=== PATIENT | female | born 1980 | race Caucasian/White ===

== ENCOUNTER → 2017-08-03 | Outpatient (CLI) | payer OTHER ==
[2017-08-03] MEDS: GADOBUTROL 10 MMOL/10 ML VIAL IV (10:38)
== END | disposition home or self-care (01) ==
LOC: MRI 13:57
DX: M22.41 Chondromalacia patellae, right knee (principal); M71.21 Synovial cyst of popliteal space [Baker], right knee; R60.0 Localized edema; Z87.898 Personal history of other specified conditions
CPT/HCPCS: 73723; A9585

== ENCOUNTER → 2017-11-18 | Outpatient (CLI) | payer OTHER | END | disposition home or self-care (01) | LOC: RAD 10:43 | DX: M25.561 Pain in right knee (principal); M25.562 Pain in left knee | CPT/HCPCS: 73562 ==

== ENCOUNTER → 2019-01-03 | Outpatient (CLI) | payer OTHER ==
[2018-01-14 15:00] VITALS: BP 107/70
[~2019-01-03] MED LIST: ACYC400T PO; ATEN25TA PO; CYCL5TAB PO; DIAZ5TAB PO; HYDR-2761 PO; MELO7.5T29 PO; METH-364 PO; PANT20TA2 PO; [UNRECOGNIZED DRUG - OTHER]
--- NOTE | 2019-01-03 08:19 | RAD ---
EXAM: Limited abdominal ultrasound. HISTORY: Left upper quadrant swelling. COMPARISON: None. FINDINGS: Sonography of the left upper quadrant was performed at the site of concern. The palpable region appears to correspond with the costal margin. No fluid collection or mass is identified. The spleen is not enlarged at 11.1 cm. IMPRESSION: 1. The focus of palpable concern may correspond with the costal margin. No abnormality is identified. Recommend ongoing clinical follow-up of palpable foci. Electronically signed by: Cam Mcleod MD (01/03/2019 8:16 AM) [facility]
== END | disposition home or self-care (01) ==
LOC: US 06:16
PROVIDERS: ATTEND Family Medicine
DX: R10.12 Left upper quadrant pain (principal)
CPT/HCPCS: 76705

== ENCOUNTER 2019-12-14 18:29 | Emergency (ER) | payer OTHER ==
[~2019-12-14] VITALS: Ht 165.1 cm; Wt 118.0 kg
[2019-12-14 18:47] VITALS: BP 166/78
[2019-12-14 19:12] LABS: BILIRUBIN,URINE SMALL (NEG); CLARITY,URINE CLOUDY; COLOR,URINE RED; NITRITE,URINE NEGATIVE (NEG); PROTEIN,URINE 30 mg/dL (NEG-TRACE)
[2019-12-14] MEDS ORDERED: OXYC-325 PO (19:20)
[2019-12-14] MEDS ORDERED: NYST15CR TP (19:20)
--- NOTE | 2019-12-14 19:20 | PHYS DOC ---
Past Medical History Past Medical History: Other Additional Past Medical Histor: thyroid disease, herpes, muscle spasms to lower back Past Surgical History: No Surgical History Smoking Status: Current Every Day Smoker Alcohol Use: None Drug Use: None General Adult EDM: Chief Complaint: PELVIC PAIN HPI: HPI: Patient is a 39 year old female presents for evaluation of rash in abdominal panus and pain. Patient states both started 2 days ago-- progressively getting worse. Pain worse with walking or palpation. Patient currently on her period. On exam patients abdomen and suprapubic soft. Red, moist area along the underfound of patients panus--consistent with yeast infection. This area is tender to palpation. Patient is scheduled for have hysterectomy next Wednesday and has preoperative cov id evaluation tomorrow. Review of Systems: Review of Systems: Constitutional: Denies fever or chills. [] Eyes: Denies change in visual acuity. [] HENT: Denies nasal congestion or sore throat. [] Respiratory: Denies cough or shortness of breath. [] Cardiovascular: Denies chest pain or edema. [] GI: Denies abdominal pain, nausea, vomiting, bloody stools or diarrhea. [] : Denies dysuria. [suprapubic discomfort] Musculoskeletal: Denies back pain or joint pain. [] Integument: positive rash. [] Neurologic: Denies headache, focal weakness or sensory changes. [] Endocrine: Denies polyuria or polydipsia. [] Lymphatic: Denies swollen glands. [] Psychiatric: Denies depression or anxiety. [] Heart Score: Risk Factors: Risk Factors: DM, Current or recent (<one month) smoker, HTN, HLP, family history of CAD, obesity. Risk Scores: Score 0 - 3: 2.5% MACE over next 6 weeks - Discharge Home Score 4 - 6: 20.3% MACE over next 6 weeks - Admit for Clinical Observation Score 7 - 10: 72.7% MACE over next 6 weeks - Early Invasive Strategies Allergies: Allergies: Allergies Coded Allergies Type Severity Reaction Last Updated Verified Penicillins Allergy Intermediate Hives 12/02/15 Yes aspirin Allergy Intermediate Hives 12/02/15 Yes Physical Exam: PE: Constitutional: Well developed, well nourished, no acute distress, non-toxic appearance. [] HENT: Normocephalic, atraumatic, bilateral external ears normal, oropharynx moist, no oral exudates, nose normal. [] Eyes: PERRLA, EOMI, conjunctiva normal, no discharge. [] Neck: Normal range of motion, no tenderness, supple, no stridor. [] Cardiovascular:Heart rate regular rhythm, no murmur [] Lungs & Thorax: Bilateral breath sounds clear to auscultation [] Abdomen: Bowel sounds normal, soft, no tenderness, no masses, no pulsatile masses. [] Skin: Warm, dry, no erythema, rash lower abdomen upper pelvis consistent with yeast infection, red and moist area- tender to palpation Back: No tenderness, no CVA tenderness. [] Extremities: No tenderness, no cyanosis, no clubbing, ROM intact, no edema. [] Neurologic: Alert and oriented X 3, normal motor function, normal sensory function, no focal deficits noted. [] Psychologic: Affect normal, judgement normal, mood normal. [] EKG: EKG: [] Radiology/Procedures: Radiology/Procedures: [] Course & Med Decision Making: Course & Med Decision Making Pertinent Labs and Imaging studies reviewed. (See chart for details) [] Dragon Disclaimer: [employer] Disclaimer: This electronic medical record was generated, in whole or in part, using a voice recognition dictation system. Departure Departure Impression: Primary Impression: Yeast infection Additional Impression: Pelvic pain Disposition: 01 HOME, SELF-CARE Condition: STABLE Referrals: DAVID MEDINA MD (PCP) Patient Instructions: Pelvic Pain, Female, Yeast Infection of the Skin, Ofvs-rd-Eyod Scripts Oxycodone HCl/Acetaminophen (Percocet 5-325 mg Tablet) 1 Each Tablet 1 TAB PO PRN TID PRN for PAIN MDD 3 Tablet(s) for 5 Days, #15 TAB 0 Refills Prov: YADIRA ORTEGA I DO 12/14/19 Nystatin (NYSTATIN) 15 Gm Cream..g. 1 TORI TP TID, #30 GM Prov: YADIRA ORTEGA I DO 12/14/19 YADIRA ORTEGA I DO December 14, 2019 19:20
[2019-12-14 19:30] LABS: HYALINE CASTS, URINE OCCASIONAL /HPF; RBC,URINE TNTC /HPF (0-2); SQUAMOUS EPITHELIAL CELL,UR MOD /LPF
[2019-12-14 19:31] LABS: AMORPHOUS SEDIMENT,UR PRESENT /HPF; BACTERIA,URINE MODERATE /HPF (0-FEW)
== END 2019-12-14 19:28 | disposition home or self-care (01) ==
LOC: ER 18:29
DX: B37.89 Other sites of candidiasis (principal); R10.2 Pelvic and perineal pain; Z88.0 Allergy status to penicillin; Z88.6 Allergy status to analgesic agent
CPT/HCPCS: 81001; 81025; 87086; 99283

== ENCOUNTER → 2019-12-18 | Outpatient (CLI) | payer OTHER ==
[2019-12-14 18:47] VITALS: BP 166/78
[~2019-12-18] MED LIST changes: +DOCU-109 PO; +IBUP-1060 PO; +NYST15CR TP; +OXYC-325 PO; +OXYC1TAB15 PO
[2019-12-18 14:26] LABS: BASO # 0.1 x10^3/uL (0.0-0.2); BASO % 1 % (0-3); EOS # 0.2 x10^3/uL (0.0-0.7); EOS % 1 % (0-3); HEMATOCRIT 37.2 % (36.0-47.0); HEMOGLOBIN 12.4 g/dL (12.0-15.5); LYMPH # 2.1 x10^3/uL (1.0-4.8); LYMPH % 18 % (24-48); MEAN CORPUSCULAR HEMOGLOBIN 30 pg (25-35); MEAN CORPUSCULAR HGB CONC 34 g/dL (31-37); MEAN CORPUSCULAR VOLUME 89 fL (79-100); MONO # 0.8 x10^3/uL (0.0-1.1); MONO % 7 % (0-9); NEUT # 8.5 x10^3/uL (1.8-7.7); NEUT % 73 % (31-73); PLATELET COUNT 298 x10^3/uL (140-400); RED BLOOD COUNT 4.19 x10^6/uL (3.50-5.40); RED CELL DISTRIBUTION WIDTH 15.6 % (11.5-14.5); WHITE BLOOD COUNT 11.7 x10^3/uL (4.0-11.0)
[2019-12-18 14:45] LABS: CALCIUM 8.3 mg/dL (8.5-10.1); CREATININE 0.9 mg/dL (0.6-1.0); POTASSIUM 3.8 mmol/L (3.5-5.1)
== END | disposition home or self-care (01) ==
LOC: SURGPAT 13:34
PROVIDERS: ATTEND Obstetrics & Gynecology
DX: Z01.818 Encounter for other preprocedural examination (principal); Z11.59 Encounter for screening for other viral diseases; N92.0 Excessive and frequent menstruation with regular cycle
CPT/HCPCS: 36415; 80048; 85025; C9803-CS; U0003-CS

== ENCOUNTER 2019-12-21 11:44 | Observation (INO) | payer OTHER ==
[2019-12-21] VITALS (10 sets, daily range): BP systolic 98–130; BP diastolic 58–76
[~2019-12-21] VITALS: Ht 165.1 cm; Wt 117.9 kg
[~2019-12-21 11:44] MED LIST changes: +CLINDAMYCIN 900MG PREMIX 50 ML IV ONE; +DEXAMETHASONE SOD PHOS 4 MG/ML VIAL ONE; -DOCU-109 PO; +GENTAMICIN SULFATE 400 MG in IV DEXTROSE 5% 100ML 100 ML IV ONE; +HYDROmorphone 2 MG/ML VIAL IV PRN; -IBUP-1060 PO; +IV RINGERS,LACTATED 1000ML 1,000 ML IV SCH; +LIDOCAINE 1% PF 2 ML VIAL. ID PRN; +LIDOCAINE 2% PF 5 ML VIAL. ONE; +MIDAZOLAM HCL/PF 2 MG/2 ML VIAL. ONE; +MORPHINE SULFATE 2 MG/ML VIAL. IV PRN; +ONDANSETRON PF 4 MG/2 ML VIAL. IV PRN; +ONDANSETRON PF 4 MG/2 ML VIAL. ONE; -OXYC1TAB15 PO; +PROCHLORPERAZINE 10 MG/2 ML VIAL. IV PRN; +PROPOFOL 10 MG/ML (20ML) VIAL. IV ONE; +ROCURONIUM 50 MG/5 ML VIAL. ONE; +fentaNYL PF VIAL 100 MCG/2 ML VIAL IV PRN; +fentaNYL PF VIAL 100 MCG/2 ML VIAL ONE
[2019-12-21] MEDS ORDERED: PHENYLEPHRINE in 0.9% NACL PF 1 MG/10 ML SYRINGE. IV ONE (13:44)
[2019-12-21] MEDS ORDERED: ROCURONIUM 50 MG/5 ML VIAL. ONE (14:15)
[2019-12-21] MEDS ORDERED: fentaNYL PF VIAL 100 MCG/2 ML VIAL ONE ×2 (14:18→16:54)
[2019-12-21] MEDS ORDERED: GLYCOPYRROLATE 1 MG/5 ML VIAL. ONE (15:26)
[2019-12-21] MEDS ORDERED: NEOSTIGMINE METHYLSULFATE 5 MG/5 ML SYRINGE. ONE (15:27)
[2019-12-21] MEDS ORDERED: SEVOFLURANE > 120 MINUTES. IH ONE (15:59)
[2019-12-21] MEDS ORDERED: PROPOFOL 10 MG/ML (20ML) VIAL. IV ONE (16:13)
[2019-12-21] MEDS ORDERED: IV NORMAL SALINE 1000ML BAG 1,000 ML IV SCH (16:24)
[2019-12-21] MEDS ORDERED: IV DEXTROSE 5 %-0.45 % NACL 1,000 ML IV SCH (16:24)
[2019-12-21] MEDS ORDERED: MORPHINE SULFATE 2 MG/ML VIAL. IV PRN ×2 (16:30)
[2019-12-21] MEDS ORDERED: oxyCODONE/APAP 5/325 1 TAB TABLET PO PRN (16:30)
[2019-12-21] MEDS ORDERED: 0.9 % SODIUM CHLORIDE 10 ML DISP.SYRIN. IV PRN (16:30)
[2019-12-21] MEDS ORDERED: diphenhydrAMINE 50 MG/ML VIAL IV PRN (16:30)
[2019-12-21] MEDS ORDERED: NALOXONE 0.4 MG/ML VIAL. IV PRN (16:30)
[2019-12-21] MEDS ORDERED: KETOROLAC 15 MG/ML VIAL. IV PRN (16:30)
[2019-12-21] MEDS ORDERED: IBUPROFEN 200 MG TABLET. PO PRN (16:30)
[2019-12-21] MEDS ORDERED: DEXTROSE 50% 25 GM / 50ML DISP.SYRIN. IV PRN (16:30)
[2019-12-21] MEDS ORDERED: diphenhydrAMINE HCL 25 MG CAPSULE PO PRN (16:30)
[2019-12-21] MEDS ORDERED: MORPHINE SULFATE 2 MG/ML VIAL. ONE (16:54)
--- NOTE | 2019-12-21 17:26 | PDOC4 ---
OPERATIVE NOTE: PreOp Dx: 1.) Menorrhagia, 2.) Dysmenorrhea, 3.) PCN All, 4.) Tob use, 5.) Asthma PostOp Dx: same Procedure: LAVH/RS Surgeon: Rosa Larson Anesthesia: GETA EBL: 500cc Fluids: 1500cc UOP: 175cc Complications: None Findings: Adhesions of the small bowel to left side of anterior abd wall containing some of the left tube, otherwise nml right tube and uterus. Specimen: uterus, cervix and right tube DAVID LARSON MD December 21, 2019 17:25
--- NOTE | 2019-12-21 17:45 | NUR ---
Pt admitted to room 341 per bed from PACU. Pt sleepy but arouses, she complains of "needing to pee". Dc catheter is draining properly, will notify the doctor if the pain continues. Frequent VS started.
[2019-12-21] MEDS: oxyCODONE/APAP 5/325 1 TAB TABLET PO PRN (21:01)
[2019-12-21] MEDS: DOCUSATE SODIUM 100 MG CAPSULE. PO SCH (21:03)
--- NOTE | 2019-12-21 22:31 | OP ---
DATE OF SURGERY: 12/21/2019 PREOPERATIVE DIAGNOSES: 1. Menorrhagia. 2. Dysmenorrhea. 3. PENICILLIN ALLERGY. 4. Tobacco use. 5. Asthma. POSTOPERATIVE DIAGNOSES: 1. Menorrhagia. 2. Dysmenorrhea. 3. PENICILLIN ALLERGY. 4. Tobacco use. 5. Asthma. PROCEDURE: Laparoscopic-assisted vaginal hysterectomy with right salpingectomy. SURGEON: Justin Larson MD ANESTHESIA: General endotracheal intubation. ESTIMATED BLOOD LOSS: 500 mL. FLUIDS: 1500 mL. URINE OUTPUT: 175 mL. COMPLICATIONS: None. FINDINGS: Adhesions of the small bowel to the left anterior abdominal wall. Also, containing a portion of the left tube, otherwise normal right tube, normal uterus. SPECIMENS: Uterus, right tube and cervix. DESCRIPTION OF PROCEDURE: The patient was taken to the operating room where general endotracheal intubation was obtained without difficulty. The patient was prepped and draped in normal sterile fashion. Attention was first turned to the vagina where speculum was placed to visualize the cervix. The anterior lip of the cervix was grasped with a single tooth tenaculum. An [place] uterine manipulator was then placed into the uterine cavity. The speculum was then removed. At that point, a Dc catheter was then placed in the patient's bladder. Attention was then turned to the abdomen where a 5 mm skin incision was made in her infraumbilical fold. Veress needle was introduced into the abdominal cavity. The opening pressure was above the 15 mmHg, so it was felt not to be in the intraabdominal cavity. Therefore, the Veress needle was removed. At that point, a 5 mm trocar was directly placed into the abdomen. Intraabdominal placement was confirmed with the laparoscope. The abdomen was then insufflated to 15 mmHg. Once the abdomen was insufflated, a second trocar was then placed on the left approximately two-thirds between her ischial spine and the umbilicus first by making a 5 mm skin incision followed by placing the trocar under direct visualization of the laparoscope. Attention was then turned to the right where a 5 mm trocar was then placed in similar fashion, approximately two-thirds between the ischial spine and the umbilicus by first making a 5 mm skin incision and then placing a 5 mm trocar under direct visualization of the laparoscope. Visualization of the pelvis revealed adhesions of the small bowel to the left portion of the anterior abdominal wall, contained in these adhesion was the left tube. Since the patient had had no abdominal surgery prior, it was felt that these adhesions may have been secondary to infection in the past. Visualization of the rest of her abdomen revealed no adhesions near her liver or any other portion of the abdomen or pelvis. At that point, some of the adhesions were taken down to sufficiently to allow visualize the uterus, tubes and ovaries. At that point, since the left tube could not be from the adhesions, it was dissected through. The portion that could be removed with the uterus was dissected and off with the LigaSure device. The LigaSure device was then used to serially coagulate and cut the uterine pedicles to the level of the uterine arteries. At that point, the peritoneum was undermined to allow for the creation of bladder flap. The bladder flap was then brought to the midline. Additional bites of the uterine pedicles were taken with the LigaSure device. Attention was then turned to the right side. At this point, the right tube was able to be followed out to the fimbria. The right tube was then from the ovary with the LigaSure device. Once this had been performed, the round ligament was then cut with the LigaSure device. The uterine pedicles on the right were then serially coagulated and cut with the LigaSure device to the level of the uterine arteries. At that point, the peritoneum was undermined to complete the bladder flap. Once this had been accomplished, an additional bite of the uterine vessels were then taken with the LigaSure device. At that point, good hemostasis was noted. All the instruments were removed. Attention was then turned to the vagina, where the cervix was cut circumferentially with the Bovie device. It was noted that there was very little descensus of the uterus despite the pedicles that had be taken down from above. In fact the posterior lip of the cervix did not readily come down when was grasped with a single-tooth tenaculum. At that point, the pubovesical fascia was then dissected from the bladder with Metzenbaum scissors. Once the anterior cul-de-sac was entered, attention was then turned to the posterior cul-de-sac where Harrison scissors were used to enter the peritoneum posteriorly. At that point, a Teresa clamp was used to grasp the left uterosacral ligament. This was then cut and tagged with 0 Vicryl. This was performed on the right side where the right uterosacral ligament was grasped with a Teresa clamp, cut and tagged. Once this had been performed, the uterus was serially cut, clamped and tied until all pedicles were free. This was accomplished with 4 additional bites on each side. Uterus was then delivered. Once the uterus was delivered, the remaining pedicles were tied off with a free tie. Examination of the uterus revealed that the right tube was intact with the rest of the specimen. Once good hemostasis was noted, the vaginal cuff was then closed first by making a pyfbfm-ox-jcsbq stitch on the left lateral edge at the second pass including the left uterosacral ligament. This was then tagged. Attention was then turned to the right side, where a vyzcde-va-wjgsq stitch was then placed at the second pass including the right uterosacral ligament. Three additional mcnlwb-pv-przyy stitches were used to close the remainder of the cuff. The cuff was then irrigated. Good hemostasis was noted. All the stitches were all cut. At that point, attention was then turned to the abdomen which was once again insufflated. Survey of the vaginal cuff revealed good hemostasis. The pelvis was then copiously irrigated. Good hemostasis was noted at that point. The ureters were then observed to be peristalsing. All instruments were removed as well as the trocar. The laparoscopic incisions were closed with 4-0 Monocryl. At that point, the patient tolerated the procedure well and was taken to the recovery room in stable condition. Sponges, laps and needles were correct x 3. JUSTIN LARSON MD DR: SHANNON/michael JOB#: [id number] / [id number] ALECIA
[2019-12-22 00:53] VITALS: BP 111/59
[2019-12-22] MEDS: oxyCODONE/APAP 5/325 1 TAB TABLET PO PRN ×2 (01:01→05:47)
[2019-12-22 05:31] LABS: BASO % 0 % (0-3); EOS % 0 % (0-3); HEMOGLOBIN 9.9 g/dL (12.0-15.5); LYMPH # 1.5 x10^3/uL (1.0-4.8); LYMPH % 9 % (24-48); MEAN CORPUSCULAR HEMOGLOBIN 29 pg (25-35); MEAN CORPUSCULAR HGB CONC 33 g/dL (31-37); MEAN CORPUSCULAR VOLUME 89 fL (79-100); MONO # 1.3 x10^3/uL (0.0-1.1); MONO % 8 % (0-9); NEUT # 13.7 x10^3/uL (1.8-7.7); NEUT % 83 % (31-73); PLATELET COUNT 290 x10^3/uL (140-400); RED BLOOD COUNT 3.36 x10^6/uL (3.50-5.40); RED CELL DISTRIBUTION WIDTH 15.5 % (11.5-14.5); WHITE BLOOD COUNT 16.6 x10^3/uL (4.0-11.0)
[2019-12-22 05:43] VITALS: BP 114/39
[2019-12-22 05:46] LABS: CALCIUM 7.8 mg/dL (8.5-10.1); GFR 61.1; POTASSIUM 4.6 mmol/L (3.5-5.1)
[2019-12-22] MEDS ORDERED: DOCU-109 PO (08:24)
[2019-12-22] MEDS ORDERED: IBUP-1060 PO (08:24)
[2019-12-22] MEDS ORDERED: OXYC1TAB15 PO (08:24)
[2019-12-22 09:06] LABS: % BANDS 5 % (0-9); % EOS 2 % (0-5); % LYMPHS 2 % (24-48); % MONOS 5 % (0-10); % SEGS 86 % (35-66); PLT ESTIMATE ADEQUATE (ADEQUATE)
--- NOTE | 2019-12-22 09:26 | PDOC ---
[facility] PROGRESS NOTE Subjective: The pt with good pain control. Shanel PO. Dc removed this am. Pt feels tired due to getting little sleep last night Objective: Vital Signs: Vital Signs Date Time Temp Pulse Resp B/P (MAP) Pulse Ox O2 Delivery O2 Flow Rate FiO2 12/21/19 12:16 97.3 87 20 116/58 97 Room Air 97.3 12/21/19 16:37 8 Vital Signs Date Time Temp Pulse Resp B/P (MAP) Pulse Ox O2 Delivery O2 Flow Rate FiO2 12/22/19 07:15 18 Room Air 12/22/19 05:47 94 12/22/19 05:43 99.4 77 114/39 (64) 99.4 12/22/19 01:01 2.0 Labs: Laboratory Tests Test 12/21/19 12:49 12/22/19 05:00 12/22/19 05:15 POC Urine HCG, Qualitative Hcg negative (Negative) White Blood Count 16.6 x10^3/uL (4.0-11.0) H Red Blood Count 3.36 x10^6/uL (3.50-5.40) L Hemoglobin 9.9 g/dL (12.0-15.5) L Hematocrit 30.0 % (36.0-47.0) L Mean Corpuscular Volume 89 fL (79-100) Mean Corpuscular Hemoglobin 29 pg (25-35) Mean Corpuscular Hemoglobin Concent 33 g/dL (31-37) Red Cell Distribution Width 15.5 % (11.5-14.5) H Platelet Count 290 x10^3/uL (140-400) Neutrophils (%) (Auto) 83 % (31-73) H Lymphocytes (%) (Auto) 9 % (24-48) L Monocytes (%) (Auto) 8 % (0-9) Eosinophils (%) (Auto) 0 % (0-3) Basophils (%) (Auto) 0 % (0-3) Neutrophils # (Auto) 13.7 x10^3/uL (1.8-7.7) H Lymphocytes # (Auto) 1.5 x10^3/uL (1.0-4.8) Monocytes # (Auto) 1.3 x10^3/uL (0.0-1.1) H Eosinophils # (Auto) 0.0 x10^3/uL (0.0-0.7) Basophils # (Auto) 0.0 x10^3/uL (0.0-0.2) Segmented Neutrophils % 86 % (35-66) H Band Neutrophils % 5 % (0-9) Lymphocytes % 2 % (24-48) L Monocytes % 5 % (0-10) Eosinophils % 2 % (0-5) Platelet Estimate Adequate (ADEQUATE) Sodium Level 137 mmol/L (136-145) Potassium Level 4.6 mmol/L (3.5-5.1) Chloride Level 103 mmol/L (98-107) Carbon Dioxide Level 24 mmol/L (21-32) Anion Gap 10 (6-14) Blood Urea Nitrogen 14 mg/dL (7-20) Creatinine 1.0 mg/dL (0.6-1.0) Estimated GFR (Cockcroft-Gault) 61.1 Glucose Level 178 mg/dL (70-99) H Calcium Level 7.8 mg/dL (8.5-10.1) L Laboratory Tests 12/22/19 05:00 Laboratory Tests 12/22/19 05:15 Laboratory Tests 12/22/19 05:00 12/22/19 05:15 Physical Exam: GENERAL: No apparent distress. Alert and oriented. HEENT: Head normocephalic, atraumatic. NECK: Supple LUNGS: Clear to auscultation. HEART: RRR, S1, S2 present, pulses intact ABDOMEN: Soft, positive bowel sounds. EXTREMITIES: No cyanosis or edema. NEUROLOGIC: Normal speech, normal tone PSYCHIATRIC: Normal affect, normal mood. SKIN: No ulceration. Port site inc: dressing dry Assessment & Plan: A/P 39y POD #1 s/p LAVH/RS 1.) PO doing well 2.) Indications menorrhagia, dysmenorrhea 3.) Hgb 12.4 -> 9.9 Tob use - discussed cessation 4.) Childhood asthma 5.) If meets d/c criteria will d/c this afternoon DAVID LARSON MD December 22, 2019 09:26
[2019-12-22] MEDS: DOCUSATE SODIUM 100 MG CAPSULE. PO SCH (10:28)
[2019-12-22] MEDS ORDERED: SIMETHICONE 80 MG TAB.CHEW PO PRN (10:30)
[2019-12-22 10:49] VITALS: BP 106/61
[2019-12-22 17:45] VITALS: BP 98/58
--- NOTE | 2019-12-22 17:46 | NUR ---
Discharge Discharge and incisional instructions given to patient at this time, no questions or concerns noted. To follow up in [address] Hamilton. Waiting for transportation, will continue to monitor.
--- NOTE | 2019-12-22 21:08 | DS ---
DATE OF DISCHARGE: 12/22/2019 ADMISSION DIAGNOSES: 1. Menorrhagia. 2. Dysmenorrhea. 3. PENICILLIN ALLERGY. 4. Tobacco use. 5. Asthma. DISCHARGE DIAGNOSES: 1. Menorrhagia. 2. Dysmenorrhea. 3. PENICILLIN ALLERGY. 4. Tobacco use. 5. Asthma. PROCEDURE: Laparoscopic-assisted vaginal hysterectomy with right salpingectomy. BRIEF HOSPITAL COURSE: The patient is a 39-year-old 2, para 2-0-0-2, who presented for scheduled surgery. The patient was first seen on 09/22/2019 for evaluation of heavy painful periods. The decision at that time was made for definitive treatment. The patient signed tubal papers and the plan was for them to return when she measured. Due to COVID-19, the patient did not schedule immediately, but represented in November. At that appointment on 12/12/2019, the patient confirmed that she still wanted to proceed with the procedure. The patient's history was significant for 3 years of heavy bleeding as well as being painful. The patient underwent an ultrasound, which revealed her uterus to measure 8 x 5 x 4 cm. Endometrial biopsy was benign. Also discussed bilateral salpingo-oophorectomy with the patient, with the understanding due to her young age, it would probably be best to preserve her ovaries. We also discussed due to her PENICILLIN ALLERGY, WHERE SHE REPORTED HIVES, we would be using clindamycin and gentamicin for prophylactic antibiotics. The patient underwent said procedure on 12/21/2019. See operative note for full detail. By postop day #2, the patient was meeting all discharge criteria and desired discharge home. Of note, the patient preoperatively had a hemoglobin of 12.4 and postoperatively was found to be 9.9. DISCHARGE INSTRUCTIONS: The patient was told not to lift anything greater than 20 pounds, have pelvic rest for [address] on narcotics. The patient is to call if she had fevers, chills, nausea, vomiting, abdominal pain or any additional questions or concerns. FOLLOWUP APPOINTMENT: The patient is to follow up on 12/28/2019 at 10:00 a.m. for her postoperative appointment. DISCHARGE MEDICATIONS: The patient was given a prescription for Percocet 5 mg, 15 pills; Motrin 800 mg, 30 pills; Colace 100 mg, 30 pills. DAVID LARSON MD DR: Kirsten JOB#: [id number] / [id number]
--- NOTE | 2019-12-26 16:06 | PATHOLOGY ---
[facility] Accession Number: [id number] . 01 Material submitted: . uterus - UTERUS,CERVIX AND RIGHT FALLOPIAN TUBE . 01 Clinical history: . Menorrhagia . 02 Diagnosis: Uterus and fallopian tube, laparoscopic assisted vaginal hysterectomy with right salpingectomy: - Adenomyosis, uterine corpus, subbasal, focal. - Chronic cervicitis with focal squamous metaplasia and focal tubal metaplasia of endocervical glands. - Nabothian cysts, cervix. - Slightly disordered proliferative endometrium. - Congestion of fallopian tube. (JPM:usha; 12/26/2019) [facility] [place] 12/26/2019 1506 Local . 02 Comment: There is no atypia or evidence of malignancy. (JPM:usha; 12/26/2019) . 02 Electronically signed: . Jose Alberto Degroot MD, Pathologist NPI- [id number] . 01 Gross description: . The specimen is received in formalin, labeled "Akilah Weaver, uterus and cervix and right fallopian tube" and consists of a 93 g uterus with cervix and right possibly fimbriated fallopian tube. The uterus and cervix measure 9.2 x 5.0 x 4.0 cm. The fallopian tube measures 4.0 cm in length and up to 0.4 cm in diameter. The uterine serosa is [place] smooth shiny with 2 posterior defect measuring 2.0 cm and 3.0 cm. The circular 1.0 cm cervical os is surrounded by ragged to hemorrhagic ectocervical mucosa. Multiple nabothian cysts are present. The endocervical canal is smooth to corrugated measuring 3.1 cm in length. The endometrial cavity is triangular measuring 4.5 cm in length and 3.0 cm in width lined by a pink endometrium measuring 0.1 cm. The myometrium measures up to 2.1 cm with no nodules or gross lesions. The fallopian tube segment is pink-purple smooth shiny with sectioning revealing a well-defined central lumen. [employer] sections are submitted as follows: . A1: Anterior cervix A2: Posterior cervix A3: Anterior endomyometrium A4: Posterior endomyometrium A5: Right fallopian tube to include entire possible fimbriated end (SDY; 12/22/2019) SYU/SYU 12/22/2019 1615 Local . 02 Pathologist provided ICD-10: N80.0, N72, N88.8, N85.9 . 02 CPT . 422096 Specimen Comment: A courtesy copy of this report has been sent to [phone], [phone] Specimen Comment: [id number] Specimen Comment: Report sent to / DR AGEE Performed at: 01 [facility] [address], [place] [id number] MD Jett Brush MD Phone: [phone] Performed at: 02 [facility] [address] [place], [place] [id number] MD Jose Alberto Degroot MD Phone: [phone]
== END 2019-12-22 18:33 | disposition home or self-care (01) ==
LOC: SURG 11:44 → 3 NORTH 17:53
PROVIDERS: ADMIT Obstetrics & Gynecology; ATTEND Obstetrics & Gynecology
DX: N92.0 Excessive and frequent menstruation with regular cycle (principal); N94.6 Dysmenorrhea, unspecified; J45.909 Unspecified asthma, uncomplicated; Z88.0 Allergy status to penicillin; F17.200 Nicotine dependence, unspecified, uncomplicated; Z79.899 Other long term (current) drug therapy
CPT/HCPCS: 36415; 58552; 80048; 81025; 85007; 85025; 86850; 86900; 86901; 88307; 96374; 96375; A7015; G0378; G0379; J1100; J1580; J1885; J2250; J2370; J2405; J2704; J2710; J3010; J3490; J7030; J7042; J7060; J2270; A4461

== ENCOUNTER 2020-05-10 11:49 | Emergency (ER) | payer OTHER ==
[~2020-05-10] VITALS: Ht 165.1 cm; Wt 110.9 kg
[~2020-05-10 11:49] MED LIST changes: -CLINDAMYCIN 900MG PREMIX 50 ML IV ONE; -DEXAMETHASONE SOD PHOS 4 MG/ML VIAL ONE; +DOCU-109 PO; -GENTAMICIN SULFATE 400 MG in IV DEXTROSE 5% 100ML 100 ML IV ONE; -HYDROmorphone 2 MG/ML VIAL IV PRN; +IBUP-1060 PO; -IV RINGERS,LACTATED 1000ML 1,000 ML IV SCH; -LIDOCAINE 1% PF 2 ML VIAL. ID PRN; -LIDOCAINE 2% PF 5 ML VIAL. ONE; -MIDAZOLAM HCL/PF 2 MG/2 ML VIAL. ONE; -MORPHINE SULFATE 2 MG/ML VIAL. IV PRN; -ONDANSETRON PF 4 MG/2 ML VIAL. IV PRN; -ONDANSETRON PF 4 MG/2 ML VIAL. ONE; +OXYC1TAB15 PO; -PROCHLORPERAZINE 10 MG/2 ML VIAL. IV PRN; -PROPOFOL 10 MG/ML (20ML) VIAL. IV ONE; -ROCURONIUM 50 MG/5 ML VIAL. ONE; -fentaNYL PF VIAL 100 MCG/2 ML VIAL IV PRN; -fentaNYL PF VIAL 100 MCG/2 ML VIAL ONE
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
[2020-05-10 12:38] LABS: BILIRUBIN,URINE NEGATIVE (NEG); CLARITY,URINE CLOUDY; COLOR,URINE YELLOW; NITRITE,URINE NEGATIVE (NEG); PH,URINE 6.5 (<5.0-8.0); PROTEIN,URINE NEGATIVE (NEG-TRACE); UROBILINOGEN,URINE 0.2 mg/dL (0.2 mg/dL)
[2020-05-10 12:45] LABS: BARBITURATES NEG (NEG); BENZODIAZEPINES NEG (NEG); CANNABINOIDS NEG (NEG); COCAINE NEG (NEG); METHADONE NEG (NEG); OPIATES NEG (NEG); PHENCYCLIDINE NEG (NEG)
[2020-05-10 12:46] LABS: BACTERIA,URINE MANY /HPF (0-FEW); RBC,URINE 0 /HPF (0-2); TRICHOMONAS,URINE PRESENT; WBC,URINE >40 /HPF (0-4)
[2020-05-10 12:47] LABS: AMPHETAMINE/METHAMPHETAMINE NEG (NEG)
--- NOTE | 2020-05-10 12:49 | RAD ---
EXAMINATION: PORTABLE CHEST 1V CLINICAL HISTORY: Chest pain EXAM DATE/TIME: 05/10/2020 11:56 AM COMPARISON: 01/13/2018 FINDINGS: Lines, Tubes, and Devices: None. Cardiomediastinal Silhouette: Within normal limits. Lungs and Pleura: No evidence of focal airspace consolidation or pleural effusion. Pulmonary vasculature unremarkable. Bones and Soft Tissues: Degenerative changes of the thoracic spine. Old healed lateral left fifth rib fracture deformity. IMPRESSION: No evidence of acute cardiopulmonary abnormality or significant interval change. Electronically signed by: Ty Haas DO (05/10/2020 12:46 PM) [id number]
[2020-05-10 12:54] LABS: BASO # 0.1 x10^3/uL (0.0-0.2); BASO % 1 % (0-3); EOS # 0.1 x10^3/uL (0.0-0.7); EOS % 1 % (0-3); HEMATOCRIT 36.3 % (36.0-47.0); HEMOGLOBIN 11.9 g/dL (12.0-15.5); LYMPH # 1.7 x10^3/uL (1.0-4.8); LYMPH % 21 % (24-48); MEAN CORPUSCULAR HEMOGLOBIN 26 pg (25-35); MEAN CORPUSCULAR HGB CONC 33 g/dL (31-37); MEAN CORPUSCULAR VOLUME 80 fL (79-100); MONO # 0.6 x10^3/uL (0.0-1.1); MONO % 7 % (0-9); NEUT # 5.7 x10^3/uL (1.8-7.7); NEUT % 71 % (31-73); PLATELET COUNT 246 x10^3/uL (140-400); RED BLOOD COUNT 4.55 x10^6/uL (3.50-5.40); RED CELL DISTRIBUTION WIDTH 21.4 % (11.5-14.5); WHITE BLOOD COUNT 8.1 x10^3/uL (4.0-11.0)
[2020-05-10] MEDS ORDERED: metroNIDAZOLE 500 MG TABLET PO ONE (13:00)
[2020-05-10] MEDS ORDERED: cefTRIAXone IV Push 1 GM VIAL. IVP ONE (13:00)
[2020-05-10] MEDS ORDERED: ONDANSETRON PF 4 MG/2 ML VIAL. IVP ONE (13:00)
[2020-05-10 13:04] LABS: PROTHROMBIN TIME PATIENT 12.8 SEC (11.7-14.0)
[2020-05-10 13:06] LABS: CALCIUM 8.2 mg/dL (8.5-10.1); CREATININE 0.9 mg/dL (0.6-1.0); GFR 68.7; POTASSIUM 3.8 mmol/L (3.5-5.1)
[2020-05-10 13:07] LABS: D-DIMER 0.33 ug/mlFEU (0.00-0.50)
[2020-05-10 13:11] LABS: ALBUMIN 2.8 g/dL (3.4-5.0); TOTAL BILIRUBIN 0.6 mg/dL (0.2-1.0); TOTAL PROTEIN 5.7 g/dL (6.4-8.2)
[2020-05-10] MEDS ORDERED: IOHEXOL 350 MG/ML 100 ML VIAL. IV ONE (13:15)
[2020-05-10] MEDS ORDERED: AZITHROMYCIN 250 MG TABLET. PO ONE (13:15)
[2020-05-10] MEDS ORDERED: CONTRAST GIVEN. MC PRN (13:30)
--- NOTE | 2020-05-10 14:21 | RAD ---
EXAM: CT Pulmonary Angiogram INDICATION: Reason: CHEST PAIN, ekg changes / Spl. Instructions: OMNI 350 INJ 100 MLS / History: TECHNIQUE: Multi-detector row images were acquired from the thoracic inlet through the upper abdomen with the use of IV contrast. Sagittal and coronal images were acquired from the transaxial data. MIP images of the pulmonary arteries were obtained. All CT scans performed at this facility utilize dose optimization techniques as appropriate to the exam, including the following: Automated exposure control and adjustment of the mA and/or KV according to patient size (this includes techniques or standardized protocols for targeted exams where dose is indication/reason for exam). IV CONTRAST: Administered COMPARISON: None FINDINGS: PULMONARY ARTERIES: No pulmonary emboli are identified. CARDIOVASCULAR: Unremarkable Aorta is normal caliber. MEDIASTINUM & LAURA: No adenopathy or masses. LUNGS: No pulmonary infiltrate, nodule, or other focal abnormality. PLEURAL SPACE: No pleural effusions or pneumothorax. OSSEOUS & SOFT TISSUE: Unremarkable ABDOMEN: The visualized portions of the upper abdomen are unremarkable. IMPRESSION: Normal CT pulmonary angiogram. Electronically signed by: Tarah Preston MD (05/10/2020 2:18 PM) [id number]
[2020-05-10 15:15] LABS: PLT ESTIMATE ADEQUATE (ADEQUATE)
[2020-05-10 15:16] LABS: ANISOCYTOSIS MOD
[2020-05-10 15:25] VITALS: BP 120/76
[2020-05-10] MEDS ORDERED: NITR100C62 PO (15:28)
--- NOTE | 2020-05-11 11:11 | EKG ---
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
--- NOTE | 2020-05-11 11:14 | EKG ---
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
== END 2020-05-10 15:48 | disposition home or self-care (01) ==
LOC: ER 11:49
DX: N30.00 Acute cystitis without hematuria (principal); R07.89 Other chest pain; A59.03 Trichomonal cystitis and urethritis; F17.200 Nicotine dependence, unspecified, uncomplicated; E03.9 Hypothyroidism, unspecified; Z88.0 Allergy status to penicillin; Z88.6 Allergy status to analgesic agent
CPT/HCPCS: 36415; 71045; 71275; 80053; 80307; 81001; 83690; 83880; 84484; 85025; 85379; 85610; 87086; 87491; 87591; 93005; 96374; 96375; 99285; J0696; J2405; Q9967

== ENCOUNTER 2020-08-20 18:49 | Emergency (ER) | payer OTHER ==
[~2020-08-20] VITALS: Ht 165.1 cm; Wt 110.4 kg
[~2020-08-20 18:49] MED LIST changes: +NITR100C62 PO
[2020-08-20] MEDS ORDERED: IV NORMAL SALINE 1000ML BAG 1,000 ML IV ONE (19:15)
[2020-08-20 19:23] LABS: BASO # 0.1 x10^3/uL (0.0-0.2); BASO % 1 % (0-3); EOS # 0.1 x10^3/uL (0.0-0.7); EOS % 1 % (0-3); HEMOGLOBIN 15.1 g/dL (12.0-15.5); LYMPH # 2.7 x10^3/uL (1.0-4.8); LYMPH % 22 % (24-48); MEAN CORPUSCULAR HEMOGLOBIN 30 pg (25-35); MEAN CORPUSCULAR HGB CONC 34 g/dL (31-37); MEAN CORPUSCULAR VOLUME 88 fL (79-100); MONO # 0.8 x10^3/uL (0.0-1.1); MONO % 6 % (0-9); NEUT # 8.8 x10^3/uL (1.8-7.7); NEUT % 71 % (31-73); PLATELET COUNT 213 x10^3/uL (140-400); RED BLOOD COUNT 5.12 x10^6/uL (3.50-5.40); RED CELL DISTRIBUTION WIDTH 15.7 % (11.5-14.5); WHITE BLOOD COUNT 12.4 x10^3/uL (4.0-11.0)
--- NOTE | 2020-08-20 19:26 | RAD ---
INDICATION: Reason: cp / Spl. Instructions: / History: COMPARISON: May 10, 2020 FINDINGS: Single view of chest obtained. Cardiac mediastinal silhouette is similar to prior. No focal airspace consolidation or pulmonary edema. No gross osseous destructive lesion. IMPRESSION: * No definite new region of focal airspace consolidation. Electronically signed by: Hill Luna MD (08/20/2020 7:24 PM) [id number]
[2020-08-20 19:37] LABS: PREG TEST PT QUAL NEGATIVE (NEG)
[2020-08-20 19:38] LABS: CALCIUM 7.9 mg/dL (8.5-10.1); CREATININE 0.9 mg/dL (0.6-1.0); GFR 68.7; POTASSIUM 4.1 mmol/L (3.5-5.1)
[2020-08-20 19:45] LABS: ALBUMIN 2.5 g/dL (3.4-5.0); ALBUMIN/GLOBULIN RATIO 0.8 (1.0-1.7); MAGNESIUM 1.9 mg/dL (1.8-2.4); TOTAL BILIRUBIN 0.3 mg/dL (0.2-1.0); TOTAL PROTEIN 5.8 g/dL (6.4-8.2)
--- NOTE | 2020-08-20 19:45 | PHYS DOC ---
Past Medical History Past Medical History: Asthma, Other Additional Past Medical Histor: thyroid disease,herpes,muscle spasms to lower back,HEART MURMUR Past Surgical History: Hysterectomy Smoking Status: Current Every Day Smoker Alcohol Use: None Drug Use: None General Adult EDM: Chief Complaint: CHEST PAIN HPI: HPI: 40-year-old female past medical history of asthma, GERD, herpes, hypothyroidism, obesity, menorrhagia (s/p MAVERICK w/USO-R) and tobacco dependence, presents to the ED with sharp sternal chest pain that is been intermittent lasting for the past 2 to 3 weeks, and going, states sometimes the pain moves under both breasts with tenderness to pressure, worsened when leaning forward. States she was driving with a friend in her car was worried she was "breathing too fast." States she has asthma but has never required any prednisone and is not compliant with her inhaler. Reports a " smoker's cough." Lives with 17-year-old daughter who is doing online school and states " we go nowhere." Has never received an influenza vaccination. Denies any associated fatigue, malaise, sore throat, new cough, headache, nausea, vomiting, diarrhea, dyspnea, hemoptysis, leg swelling, loss of taste or smell or anorexia. Reports admission in the past for 3 days for chest pain evaluation. EMR was reviewed - admitted in 2018 for atypical cp (suspected GI) w/normal TTE, to f/u outpt for stress test w/Dr. Ash. Thinks she may have FH of CAD/ACS. Denies any cocaine use. Review of Systems: Review of Systems: Constitutional: Denies fever or chills. [] Eyes: Denies change in visual acuity. [] HENT: Denies nasal congestion or sore throat. [] Respiratory: Denies productive cough or hemoptysis Cardiovascular: Denies syncope or edema. [] GI: Denies abdominal pain, nausea, vomiting, bloody stools or diarrhea. [] : Denies dysuria or hematuria or vaginal bleeding Musculoskeletal: Denies back pain or joint pain. [] Integument: Denies rash or diaphoresis Neurologic: Denies headache, focal weakness or sensory changes. [] Endocrine: Denies polyuria or polydipsia. [] Lymphatic: Denies swollen glands. [] Psychiatric: Denies depression or anxiety. [] Heart Score: HEART Score for Chest Pain: HEART Score for Chest Pain Response (Comments) Value History Slighlty/Non-Suspicious 0 ECG Normal 0 Age < 45 0 Risk Factors >3 Risk Factors or Hx CAD 2 Troponin < Normal Limit 0 Total 2 Risk Factors: Risk Factors: DM, Current or recent (<one month) smoker, HTN, HLP, family history of CAD, obesity. Risk Scores: Score 0 - 3: 2.5% MACE over next 6 weeks - Discharge Home Score 4 - 6: 20.3% MACE over next 6 weeks - Admit for Clinical Observation Score 7 - 10: 72.7% MACE over next 6 weeks - Early Invasive Strategies Current Medications: Current Medications Medications (Trade) Dose Ordered Sig/Adriana Start Time Stop Time Status Last Admin Dose Admin Sodium Chloride 1,000 ml @ 1,000 mls/hr 1X ONCE 08/20/20 19:15 08/20/20 20:14 08/20/20 19:23 1,000 MLS/HR Allergies: Allergies: Allergies Coded Allergies Type Severity Reaction Last Updated Verified Penicillins Allergy Intermediate Hives 12/21/19 Yes aspirin Allergy Intermediate Hives 12/21/19 Yes Physical Exam: PE: Constitutional: Well developed, well nourished, no acute distress, non-toxic appearance. HENT: Normocephalic, atraumatic, Eyes: EOMI, conjunctiva normal, no discharge. Neck: Normal range of motion, supple, Cardiovascular: S1/2 present, regular rhythm Lungs & Thorax: Speaking in full sentences, bilateral equal chest rise, no increased work of breathing w/speech, no wheezing/rales/crackles Abdomen: soft, no tenderness, Skin: Warm, dry, no erythema, no rash. [] Back: No tenderness, no CVA tenderness. [] Extremities: No tenderness, no cyanosis, no edema Neurologic: Alert and oriented X 3, normal motor function, normal sensory function, no focal deficits noted. [] Psychologic: Affect normal, judgement normal, mood normal. [] Current Patient Data: Labs: Laboratory Tests Test 08/20/20 19:10 White Blood Count 12.4 x10^3/uL (4.0-11.0) H Red Blood Count 5.12 x10^6/uL (3.50-5.40) Hemoglobin 15.1 g/dL (12.0-15.5) Hematocrit 45.0 % (36.0-47.0) Mean Corpuscular Volume 88 fL (79-100) Mean Corpuscular Hemoglobin 30 pg (25-35) Mean Corpuscular Hemoglobin Concent 34 g/dL (31-37) Red Cell Distribution Width 15.7 % (11.5-14.5) H Platelet Count 213 x10^3/uL (140-400) Neutrophils (%) (Auto) 71 % (31-73) Lymphocytes (%) (Auto) 22 % (24-48) L Monocytes (%) (Auto) 6 % (0-9) Eosinophils (%) (Auto) 1 % (0-3) Basophils (%) (Auto) 1 % (0-3) Neutrophils # (Auto) 8.8 x10^3/uL (1.8-7.7) H Lymphocytes # (Auto) 2.7 x10^3/uL (1.0-4.8) Monocytes # (Auto) 0.8 x10^3/uL (0.0-1.1) Eosinophils # (Auto) 0.1 x10^3/uL (0.0-0.7) Basophils # (Auto) 0.1 x10^3/uL (0.0-0.2) Laboratory Tests 08/20/20 19:10 Vital Signs: Vital Signs Date Time Temp Pulse Resp B/P (MAP) Pulse Ox O2 Delivery O2 Flow Rate FiO2 08/20/20 18:55 99.1 127 36 141/71 (94) 99 Room Air 99.1 EKG: EKG: Sinus tachycardia with 3 bpm, no axis deviation, normal intervals, S1Q3T3 present that was seen in May 2020, no ST elevations or ST depressions, Q- wave lead III, nonpathological Q-wave aVF Radiology/Procedures: Radiology/Procedures: IMAGING REPORT Signed PATIENT: JOHN NICOLE ACCOUNT: [id number] : 1980 LOCATION: ER AGE: 40 SEX: F EXAM STATUS: PRE ER ORD. PHYSICIAN: YESENIA TIDWELL DO REASON: cp PROCEDURE: PORTABLE CHEST 1V INDICATION: Reason: cp / Spl. Instructions: / History: COMPARISON: May 10, 2020 FINDINGS: Single view of chest obtained. Cardiac mediastinal silhouette is similar to prior. No focal airspace consolidation or pulmonary edema. No gross osseous destructive lesion. IMPRESSION: * No definite new region of focal airspace consolidation. Electronically signed by: Juno Toribio MD (08/20/2020 7:24 PM) [id number] DICTATED and SIGNED BY: JUNO TORIBIO MD DATE: 08/20/20 [id number] 0 Course & Med Decision Making: Course & Med Decision Making Pertinent Labs and Imaging studies reviewed. (See chart for details) COVID-19 CRITERIA: The patient was evaluated during the global COVID-19 pandemic, and that diagnosis was suspected/considered upon their initial pres entation. Their evaluation, treatment and testing was consistent with current guidelines for patients who present with complaints or symptoms that may be related to COVID-19. Concern for intermittent episodes of midsternal chest pain with increased work of breathing, Covid test pending (less likely covid). Influenza test negative. Chest x-ray with no infiltrates. Patient with history of asthma and longstanding tobacco history. Pt is calm, in no distress, tachypneic on arrival w/clear lung sounds, tachypena has resolved. Patient is speaking in full sentences and requiring no supplemental oxygen. 2 troponins are negative. Lactic acidosis resolved after IV fluids. D-dimer in normal range. Nonspecific leukocytosis of 12.4. Patient with low heart score. Patient with frequent requests in ed - constantly hitting her call button for pain medication, food, IVFs, water, ice chips, blankets, "when am I going to leave?" Will tx for asthma/copd and DC home with Medrol Dosepak, albuterol and Flovent inhalers. Will discharge home with strict ED return precautions were given for increased work of breathing, syncope, fever, worsening chest pain, neurologic deficits or hemoptysis. Encouraged urgent outpatient follow-up with PMD and outpatient cardiology. Life-threatening processes were considered but are low suspicion at this time, given history, physical exam and ED workup. Pt was educated on all prescription medications and adverse effects. All patient's questions were answered and pt was stable at time of discharge. Life/limb-threatening differential includes but is not limited to, acute myocardial infarction, aortic dissection, congestive heart failure, esophageal injury including rupture, surgical abdomen, arrhythmia, cardiomyopathy, myocarditis, pericarditis, peptic ulcer disease, pneumomediastinum, pneumonia, pneumothorax, pulmonary embolus, unstable angina, rib fracture, contusion, pericardial tamponade or effusion, pulmonary contusion I spoken with the patient and her caregivers. I explained the patient's condition, diagnoses and treatment plan based on the information available to me at this time. I have answered the patient and her caregiver's questions and addressed any concerns. The patient and her caregivers have a good understanding of patient's diagnosis, condition and treatment plan as can be expected at this point. Vital signs have been stable. Patient's condition is stable and appropriate for discharge from the emergency department. Patient will pursue further outpatient evaluation with primary care physician or other designated or consulting physician as outlined in the discharge instructions. The patient and/or caregivers are agreeable to this plan of care and follow-up instructions have been explained in detail. The patient and/or caregivers have received these instructions in written form and have expressed an understanding of the discharge instructions. The patient and/or caregivers are aware that any significant change of condition or worsening of symptoms should prompt immediate return to this or the closest emergency department or call to 911. Roxana Disclaimer: Roxana Disclaimer: This electronic medical record was generated, in whole or in part, using a voice recognition dictation system. Departure Departure Impression: Primary Impression: Person under investigation for COVID-19 Additional Impressions: Chest pain Dyspnea Asthma Disposition: 01 DC HOME SELF CARE/HOMELESS Condition: STABLE Referrals: DAVID MEDINA MD (PCP) Within 7 to 10 days for reevaluation Patient Instructions: Chest Pain (Nonspecific), Shortness of Breath Additional Instructions: FOLLOW UP WITH CARDIOLOGY: [facility] Address: [address] [place] [id number] Return to ED immediately if your oxygen level drops below 90% (purchase a pulse oximetry at a medical supply store), difficulties breathing including rapid breathing or increased work of breathing (skin sucking under ribs), chest pain or stroke-like symptoms (facial droop, speech changes, arm/leg weakness). You have been tested for or diagnosed with COVID-19. It is an infection caused by a new type of coronavirus. COVID-19 will cause cold-like or mild flu symptoms in most. It can cause more severe symptoms like problems breathing in some. There is no treatment for COVID-19. The body will clear the infection over time. Self-care will help to ease discomfort. Steps to Take: Self-Care Rest as needed. Healthy habits may help you feel better. Steps include: Choose healthy foods including fruits and vegetables. Drink water throughout the day. Get plenty of sleep each night. If you smoke, try to quit. It may ease breathing. Avoid alcohol. Keep Others Healthy The virus can spread to others. Droplets are released every time you sneeze or cough. The droplets can get into the mouth, nose, or eyes of people near you and lead to infection. To lower the chances of spreading COVID-19 to others: Stay at home until your doctor has said it is safe to leave. If you tested positive this will mean staying isolated until both of the following are true: At least 7 days have passed since the start of illness. You are free of fever for at least 72 hours without the use of medicine. During this time: - Avoid public areas, events, or transportation. Do not return to work or school until your doctor has said it is safe to do so. - Call ahead if you need to go to a medical center. Let them know you may have COVID-19. It will help them guide you where to go. They may also ask you to wear a facemask when you come to the office. - If you call for emergency medical services, let them know you may have COVID- 19. While at home: - Try to avoid close contact with others. Stay about 6 feet away. - If possible, spend most of your time in a separate room from others. - Use a face mask if you will be in close contact with others such as sharing a room or vehicle. - Have someone wipe down common surfaces in the home. Use household public message service supervisor every day on areas like doorknobs, counters, or sinks. - Cough or sneeze into a tissue. Throw the tissue away right after use. If a tissue is not available, cough or sneeze into your elbow. - Wash your hands often. Wash them after sneezing or coughing. Use soap and water and wash for at least 20 seconds. Alcohol based hand casting cleaner can be used if soap and water is not available. - Do not prepare food for others. Avoid sharing personal items like forks, spoons, or toothbrushes. - Avoid close contact with pets while you are sick. There is no evidence of the virus passing to pets. This is a safety step until more is known about this virus. Isolation can be frustrating. Social interaction can help. Keep in touch with friends and family through phone and tech options. You can still interact with others in your home, just keep a safe distance of about 6 feet. Follow-up: Your doctors office will check in with you to see if there are any changes in your health. You may be asked to keep track of symptoms to share with them. They will also le t you know when you are clear to be in public again. Problems to Look Out For: Contact your doctor if your recovery is not going as you expect. Get emergency care if you have problems such as: - Trouble breathing - Nonstop chest pain or pressure - Changes in awareness, confusion, or problems waking - Lips or face have bluish color - Worsening of symptoms If you think you have an emergency, call for emergency medical services right away. As taken from [employer] [facility] Albuterol Sulfate (VENTOLIN HFA INHALER) 18 Gm Hfa.aer.ad 2 PUFF INH QID for FOR ASTHMA, #1 INHALER 0 Refills Prov: YESENIA TIDWELL DO 08/20/20 Fluticasone Propionate (FLOVENT 44MCG HFA) 10.6 Gm Aer.w.adap 2 PUFF IH BID for 30 Days, #10.6 GM 0 Refills Prov: YESEINA TIDWELL DO 08/20/20 Methylprednisolone (MEDROL) 4 Mg Tab.ds.pk 1 PKG PO UD for inflammation, #1 PKG Prov: YESENIA TIDWELL DO 08/20/20 YESENIA TIDWELL DO Aug 20, 2020 19:44
[2020-08-20] MEDS ORDERED: KETOROLAC 15 MG/ML VIAL. IVP ONE (20:15)
[2020-08-20 20:50] LABS: INFLUENZA A PATIENT NEGATIVE (NEGATIVE); INFLUENZA B PATIENT NEGATIVE (NEGATIVE)
[2020-08-20 22:30] VITALS: BP 118/54
[2020-08-20] MEDS ORDERED: DEXAMETHASONE SOD PHOS 20 MG/5 ML VIAL. IV ONE (22:30)
[2020-08-20] MEDS ORDERED: FLUT10.6 IH (23:00)
[2020-08-20] MEDS ORDERED: METH4TAB2 PO (23:00)
[2020-08-20] MEDS ORDERED: VENTOLIN HFA18 GM INH (23:00)
--- NOTE | 2020-08-22 11:30 | NUR ---
IP: Informed pt of negative COVID results. Pt verbalized understanding.
== END 2020-08-20 23:08 | disposition home or self-care (01) ==
LOC: ER 18:49
DX: R07.2 Precordial pain (principal); J45.909 Unspecified asthma, uncomplicated; Z20.828 Contact with and (suspected) exposure to other viral communicable diseases; F17.200 Nicotine dependence, unspecified, uncomplicated; K21.9 Gastro-esophageal reflux disease without esophagitis; E03.9 Hypothyroidism, unspecified; Z88.0 Allergy status to penicillin; Z88.6 Allergy status to analgesic agent
CPT/HCPCS: 36415; 71045; 80053; 83605; 83690; 83735; 83880; 84443; 84484; 84703; 85025; 85379; 87040; 87804; 96361; 96374; 96375; 99285; C9803; J1100; J1885; J7030; U0003

== ENCOUNTER 2021-03-11 13:10 | Emergency (ER) | payer OTHER ==
[~2021-03-11] VITALS: Ht 165.1 cm; Wt 105.0 kg
[~2021-03-11 13:10] MED LIST changes: +ACYC-12 PO; -ACYC400T PO; +FLUT10.6 IH; +METH4TAB2 PO; +VENTOLIN HFA18 GM INH
--- NOTE | 2021-03-11 14:14 | PHYS DOC ---
Past Medical History Past Medical History: Asthma, Other Additional Past Medical Histor: thyroid disease,herpes,muscle spasms to lower back,HEART MURMUR Past Surgical History: Hysterectomy Smoking Status: Current Every Day Smoker Alcohol Use: None Drug Use: None General Adult EDM: Chief Complaint: NAUSEA/VOMITING/DIARRHEA HPI: HPI: Patient is a 40 year old female who presents with abdominal pain, nausea, vomiting, and diarrhea for the past 3 days. States the abdominal pain is in the middle upper abdomen. Radiates around to the sides bilaterally. It is sharp in nature. She has had chills but no fevers. Has no blood in her vomiting or diarrhea. She is not vaccinated for Covid. She works at [employer] and does not wear a mask when she works. She denies any known Covid contacts. She denies any urinary symptoms including dysuria, frequency, hematuria. She has a history of a hysterectomy. She is a smoker and states that she has a smoker's cough that is unchanged. Denies alcohol use. She has had this pain once before several months ago, and it was self-limited. Review of Systems: Review of Systems: Constitutional: Denies fever. +chills. [] Eyes: Denies change in visual acuity. [] HENT: Denies nasal congestion or sore throat. [] Respiratory: Denies cough or shortness of breath. [] Cardiovascular: Denies chest pain or edema. [] GI: Reports abdominal pain, nausea, vomiting, and diarrhea [] : Denies dysuria. [] Musculoskeletal: Denies back pain or joint pain. [] Integument: Denies rash. [] Neurologic: Denies headache, focal weakness or sensory changes. [] Endocrine: Denies polyuria or polydipsia. [] Lymphatic: Denies swollen glands. [] Psychiatric: Denies depression or anxiety. [] Heart Score: C/O Chest Pain: No Risk Factors: Risk Factors: DM, Current or recent (<one month) smoker, HTN, HLP, family history of CAD, obesity. Risk Scores: Score 0 - 3: 2.5% MACE over next 6 weeks - Discharge Home Score 4 - 6: 20.3% MACE over next 6 weeks - Admit for Clinical Observation Score 7 - 10: 72.7% MACE over next 6 weeks - Early Invasive Strategies Family History: Family History: No pertinent family history identified Allergies: Allergies: Allergies Coded Allergies Type Severity Reaction Last Updated Verified Penicillins Allergy Intermediate Hives 12/21/19 Yes aspirin Allergy Intermediate Hives 12/21/19 Yes Physical Exam: PE: Constitutional: Well developed, well nourished, no acute distress, non-toxic appearance. [] HENT: Normocephalic, atraumatic,[] Eyes: conjunctiva normal, no discharge. [] Neck: Normal range of motion, no tenderness, supple, no stridor. [] Cardiovascular:Heart rate regular rhythm, no murmur [] Lungs & Thorax: Bilateral breath sounds clear to auscultation [] Abdomen: Soft. Tenderness in LUQ, epigastrium, and RUQ on palpation. No rebound or guarding. [] Skin: Warm, dry, no erythema, no rash. [] Back: No tenderness, no CVA tenderness. [] Extremities: No tenderness, no cyanosis, no clubbing, ROM intact, no edema. [] Neurologic: Alert and oriented X 3, normal motor function, normal sensory function, no focal deficits noted. [] Psychologic: Affect normal, judgement normal, mood normal. [] Current Patient Data: Vital Signs: Vital Signs Date Time Temp Pulse Resp B/P (MAP) Pulse Ox O2 Delivery O2 Flow Rate FiO2 03/11/21 13:38 97.7 103 16 149/87 100 Room Air 97.7 EKG: EKG: [] Radiology/Procedures: Radiology/Procedures: [] Impression: [facility] [address] [place], [place] [id number] IMAGING REPORT Signed PATIENT: JOHN NICOLE ACCOUNT: [id number] : 1980 LOCATION: ER AGE: 40 SEX: F EXAM STATUS: REG ER ORD. PHYSICIAN: PERFECTO CHAUDHARI MD REASON: upper abdominal pain PROCEDURE: CT ABD PELV W/ IV CONTRST ONLY CT ABDOMEN+PELVIS W History: Upper abdominal pain. Comparison: CT angiography chest 05/10/2020 Technique: CT of the abdomen and pelvis with intravenous contrast. Findings: Fissural 3 mm nodule on the first axial slice similar to comparison consistent with a fissural lymph node. The heart is unremarkable. No airspace consolidation. The liver, pancreas, spleen, adrenal glands, and kidneys are unremarkable. There is a large lamellated 2.6 cm stone in the gallbladder. The bladder is unremarkable. Status post hysterectomy. The adnexa are within normal limits. Stomach is decompressed. The small bowel is unremarkable. The appendix is normal in caliber to its tip which is adjacent to the right ovary. Mild wall thickening and adjacent inflammatory fat stranding at the cecum and proximal ascending colon. Normal appearance of the transverse and proximal descending colon. There is mild diverticulosis of the distal descending and sigmoid colon. Unremarkable vasculature. No abdominopelvic adenopathy. Osseous structures and soft tissues are unremarkable. Impression: 1. Wall thickening and inflammatory fat stranding at the cecum and proximal ascending colon with normal appearance of the appendix and terminal ileum. This is most consistent with diverticulitis or colitis of the proximal ascending colon. 2. Cholelithiasis without evidence of acute cholecystitis. ------ Exposure: One or more of the following individualized dose reduction techniques were utilized for this examination: 1. Automated exposure control 2. Adjustment of the mA and/or kV according to patient size 3. Use of iterative reconstruction technique. Electronically signed by: Horace Dejesus MD (03/11/2021 3:47 PM) [facility] DICTATED and SIGNED BY: HORACE DEJESUS MD DATE: 03/11/21 [id number] 0 Course & Med Decision Making: Course & Med Decision Making Pertinent Labs and Imaging studies reviewed. (See chart for details) Patient 40-year-old female who presents with 3 days of nausea/vomiting, diarrhea, and upper abdominal pain. On arrival is afebrile and hemodynamically stable. She appears slightly uncomfortable on exam, and has upper abdominal tenderness to palpation. We will check CBC, CMP, lipase. Given this recurrent and severe pain will obtain a CT abdomen/pelvis to evaluate for causes of upper abdominal pain. No urinary symptoms suggest a UTI. 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 Zofran, morphine, fluids ordered. 1413 CBC, CMP, lipase reassuring. CT abdomen/pelvis showed gallstones, but LFTs and symptom complex do not indicative of biliary colic or cholecystitis. Likely incidental finding. There was some evidence of colitis, which fits nicely with her history fitting with gastroenteritis. No bloody stool or risk factors to suggest ischemic colitis or mesenteric ischemia. No high fevers to suggest a severe infectious process that would require antibiotics. She is appropriately hydrated, and is safe for return home with Zofran and bland diet. Patient will follow up with her PCP. Return precautions discussed. [id number] Roxana Disclaimer: Roxana Disclaimer: This electronic medical record was generated, in whole or in part, using a voice recognition dictation system. Departure Departure Impression: Primary Impression: Gastroenteritis Disposition: 01 HOME / SELF CARE / HOMELESS Condition: STABLE Referrals: DAVID MEDINA MD (PCP) Patient Instructions: Viral Gastroenteritis Additional Instructions: If you develop high fevers, shaking chills, worsening abdominal pain, inability to keep yourself hydrated, or other new/concerning symptoms please return to the emergency department for reevaluation. For nausea you can take: Zofran 4 mg every 6 hours. Allow it to dissolve under your tongue. PERFECTO CHAUDHARI MD Mar 11, 2021 14:13
[2021-03-11] MEDS ORDERED: IV NORMAL SALINE 1000ML BAG 1,000 ML IV ONE (14:15)
[2021-03-11] MEDS ORDERED: IOHEXOL 300 MG/ML 100ML VIAL. IV ONE (14:15)
[2021-03-11] MEDS ORDERED: ONDANSETRON PF 4 MG/2 ML VIAL. IVP ONE (14:30)
[2021-03-11] MEDS ORDERED: CONTRAST GIVEN. MC PRN (14:30)
[2021-03-11] MEDS ORDERED: MORPHINE SULFATE 4 MG/ML INJ. IVP ONE (14:30)
[2021-03-11 14:35] LABS: BASO # 0.1 x10^3/uL (0.0-0.2); BASO % 1 % (0-3); EOS # 0.1 x10^3/uL (0.0-0.7); EOS % 1 % (0-3); HEMATOCRIT 41.3 % (36.0-47.0); HEMOGLOBIN 14.4 g/dL (12.0-15.5); LYMPH # 2.1 x10^3/uL (1.0-4.8); LYMPH % 18 % (24-48); MEAN CORPUSCULAR HEMOGLOBIN 31 pg (25-35); MEAN CORPUSCULAR HGB CONC 35 g/dL (31-37); MEAN CORPUSCULAR VOLUME 87 fL (79-100); MONO # 0.9 x10^3/uL (0.0-1.1); MONO % 8 % (0-9); NEUT # 8.4 x10^3/uL (1.8-7.7); NEUT % 73 % (31-73); PLATELET COUNT 238 x10^3/uL (140-400); RED BLOOD COUNT 4.73 x10^6/uL (3.50-5.40); RED CELL DISTRIBUTION WIDTH 12.7 % (11.5-14.5); WHITE BLOOD COUNT 11.5 x10^3/uL (4.0-11.0)
[2021-03-11 14:40] LABS: CALCIUM 9.4 mg/dL (8.5-10.1); CREATININE 0.8 mg/dL (0.6-1.0); GFR 78.7; POTASSIUM 4.1 mmol/L (3.5-5.1)
[2021-03-11 14:45] LABS: ALBUMIN 3.2 g/dL (3.4-5.0); ALBUMIN/GLOBULIN RATIO 0.8 (1.0-1.7); TOTAL BILIRUBIN 0.6 mg/dL (0.2-1.0); TOTAL PROTEIN 7.1 g/dL (6.4-8.2)
--- NOTE | 2021-03-11 15:49 | RAD ---
CT ABDOMEN+PELVIS W History: Upper abdominal pain. Comparison: CT angiography chest 05/10/2020 Technique: CT of the abdomen and pelvis with intravenous contrast. Findings: Fissural 3 mm nodule on the first axial slice similar to comparison consistent with a fissural lymph node. The heart is unremarkable. No airspace consolidation. The liver, pancreas, spleen, adrenal glands, and kidneys are unremarkable. There is a large lamellate d 2.6 cm stone in the gallbladder. The bladder is unremarkable. Status post hysterectomy. The adnexa are within normal limits. Stomach is decompressed. The small bowel is unremarkable. The appendix is normal in caliber to its ti p which is adjacent to the right ovary. Mild wall thickening and adjacent inflammatory fat stranding at the cecum and proximal ascending colon. Normal appearance of the transverse and proximal descendin g colon. There is mild diverticulosis of the distal descending and sigmoid colon. Unremarkable vasculature. No abdominopelvic adenopathy. Osseous structures and soft tissues are unrem arkable. Impression: 1. Wall thickening and inflammatory fat stranding at the cecum and proximal ascending colon with nor mal appearance of the appendix and terminal ileum. This is most consistent with diverticulitis or col itis of the proximal ascending colon. 2. Cholelithiasis without evidence of acute cholecystitis. ------ Exposure: One or more of the following individualized dose reduction techniques were utilized for thi s examination: 1. Automated exposure control 2. Adjustment of the mA and/or kV according to patient size 3. Use of iterative reconstruction technique. Electronically signed by: Horace Morgan MD (03/11/2021 3:47 PM) [facility]
[2021-03-11 15:52] VITALS: BP 128/60
[2021-03-11] MEDS ORDERED: ONDA4TAB7 PO (16:10)
[2021-03-11] MEDS ORDERED: HYDR-2761 PO (16:17)
--- NOTE | 2021-03-13 10:19 | NUR ---
IP: Informed pt of negative covid test. Pt verbalized understanding.
== END 2021-03-11 16:40 | disposition home or self-care (01) ==
LOC: ER 13:10
DX: K52.9 Noninfective gastroenteritis and colitis, unspecified (principal); Z20.822 Contact with and (suspected) exposure to COVID-19; J45.909 Unspecified asthma, uncomplicated; F17.200 Nicotine dependence, unspecified, uncomplicated; Z90.710 Acquired absence of both cervix and uterus; Z88.0 Allergy status to penicillin; Z88.6 Allergy status to analgesic agent
CPT/HCPCS: 36415; 74177; 80053; 83690; 85025; 87426; 96361; 96374; 96375; 99285; J2270; J2405; J7030; Q9967; U0003; U0005

== ENCOUNTER 2021-03-27 09:59 | Emergency (ER) | payer OTHER ==
[~2021-03-27] VITALS: Ht 165.1 cm; Wt 104.3 kg
[~2021-03-27 09:59] MED LIST changes: +ONDA4TAB7 PO
[2021-03-27] MEDS ORDERED: fentaNYL PF VIAL 100 MCG/2 ML VIAL IVP ONE (11:00)
[2021-03-27] MEDS ORDERED: IV NORMAL SALINE 1000ML BAG 1,000 ML IV ONE (11:00)
[2021-03-27] MEDS ORDERED: ONDANSETRON PF 4 MG/2 ML VIAL. IVP ONE (11:00)
[2021-03-27] MEDS ORDERED: CONTRAST GIVEN. MC PRN (11:45)
[2021-03-27] MEDS ORDERED: IOHEXOL 300 MG/ML 100ML VIAL. IV ONE (11:45)
[2021-03-27 11:59] LABS: CALCIUM 8.8 mg/dL (8.5-10.1); CREATININE 0.7 mg/dL (0.6-1.0); GFR 91.8; POTASSIUM 3.9 mmol/L (3.5-5.1)
[2021-03-27 12:05] LABS: ALBUMIN/GLOBULIN RATIO 0.8 (1.0-1.7); TOTAL BILIRUBIN 0.5 mg/dL (0.2-1.0); TOTAL PROTEIN 6.9 g/dL (6.4-8.2)
[2021-03-27 12:06] LABS: BASO % 0 % (0-3); EOS % 1 % (0-3); HEMATOCRIT 39.2 % (36.0-47.0); HEMOGLOBIN 13.8 g/dL (12.0-15.5); LYMPH # 0.7 x10^3/uL (1.0-4.8); LYMPH % 24 % (24-48); MEAN CORPUSCULAR HEMOGLOBIN 31 pg (25-35); MEAN CORPUSCULAR HGB CONC 35 g/dL (31-37); MEAN CORPUSCULAR VOLUME 87 fL (79-100); MONO # 0.7 x10^3/uL (0.0-1.1); MONO % 22 % (0-9); NEUT # 1.6 x10^3/uL (1.8-7.7); NEUT % 54 % (31-73); PLATELET COUNT 196 x10^3/uL (140-400); RED BLOOD COUNT 4.49 x10^6/uL (3.50-5.40); RED CELL DISTRIBUTION WIDTH 13.3 % (11.5-14.5); WHITE BLOOD COUNT 3.1 x10^3/uL (4.0-11.0)
--- NOTE | 2021-03-27 12:11 | RAD ---
Exam Date: 03/27/2021 11:[address] ABDOMEN+PELVIS W Indication: Reason: LLQ pain diarrhea / Spl. Instructions: OMNI 300 INJ. 75 MLS / History: . TECHNIQUE: CT examination of the abdomen and pelvis was performed following the administration of no nionic intravenous contrast. One or more of the following dose reduction techniques were utilized: *Automated exposure control (AEC) *Adjustment of mA and/or kV according to patient size *Use of iterative reconstruction technique *CT scan done according to ALARA, or ALARA/IMAGE GENTLY COMPARISON: March 11, 2021 FINDINGS: The visualized lung bases are clear. There is a large gallstone. The liver, gallbladder, spleen, pancreas, adrenal glands and kidneys are otherwise normal. Urinary bladder is normal in appearance. Diverticulosis coli is seen without bowel obstruction or inflammation. Interval resolution of previo usly seen inflammatory changes involving the proximal colon. The appendix is normal. Mild prerectal fat stranding and soft tissue prominence is again seen, unchanged and possibly representing scarring from prior hysterectomy. Mild atherosclerotic calcifications are seen. No lymphadenopathy or ascites is seen. Degenerative changes are seen in the spine. IMPRESSION: Diverticulosis coli without evidence for diverticulitis. Interval resolution of previously seen infl ammatory changes involving the proximal colon. Mild prerectal fat stranding and soft tissue prominence is again seen, unchanged and possibly represe nting scarring from prior hysterectomy. Electronically signed by: Kit Cuello MD (03/27/2021 12:09 PM) [facility]
--- NOTE | 2021-03-27 12:42 | PHYS DOC ---
Past Medical History Past Medical History: Asthma, Other Additional Past Medical Histor: thyroid disease,herpes,muscle spasms to lower back,HEART MURMUR (VASILIYMitchellMAXIMINO Karson POLARITY TESTER) Past Surgical History: Hysterectomy (MAXIMINO TRIANA Karson POLARITY TESTER) Smoking Status: Current Every Day Smoker Alcohol Use: Rarely Drug Use: None (MAXIMINO TRIANA Karson POLARITY TESTER) General Adult EDM: Chief Complaint: ABDOMINAL PAIN HPI: HPI: Patient is a 40 year old female presented today complaining of 7 out of 10 left lower quadrant abdominal pain, symptoms have been going on since yesterday. Also complaining of diarrhea. Denies any fever. Denies any nausea or vomiting. Patient states she has a sore throat and a cough but does not want to be tested for COVID-19. She states she works at [employer] and does not wear a mask. She states she is not vaccinated against covid either. (MAXIMINO TRIANA Karson POLARITY TESTER) Review of Systems: Review of Systems: Constitutional: Denies fever or chills. [] Eyes: Denies change in visual acuity. [] HENT: Reports sore throat. Denies nasal congestion Respiratory: Reports cough, denies shortness of breath. [] Cardiovascular: Denies chest pain or edema. [] GI: Reports abdominal pain with diarrhea, denies nausea, vomiting, bloody stools : Denies dysuria. [] Musculoskeletal: Denies back pain or joint pain. [] Integument: Denies rash. [] Neurologic: Denies headache, focal weakness or sensory changes. [] Psychiatric: Denies depression or anxiety. [] (MAXIMINO TRIANA Karson POLARITY TESTER) Heart Score: C/O Chest Pain: N/A Risk Factors: Risk Factors: DM, Current or recent (<one month) smoker, HTN, HLP, family history of CAD, obesity. Risk Scores: Score 0 - 3: 2.5% MACE over next 6 weeks - Discharge Home Score 4 - 6: 20.3% MACE over next 6 weeks - Admit for Clinical Observation Score 7 - 10: 72.7% MACE over next 6 weeks - Early Invasive Strategies (VASILIYMAXIMINO Medrano POLARITY TESTER) Current Medications: Current Medications Medications (Trade) Dose Ordered Sig/Adriana Start Time Stop Time Status Last Admin Dose Admin Fentanyl Citrate (Fentanyl 2ml Vial) 50 mcg 1X ONCE 03/27/21 11:00 03/27/21 11:01 DC 03/27/21 11:39 50 MCG Info (CONTRAST GIVEN -- Rx MONITORING) 1 each PRN DAILY PRN 03/27/21 11:45 03/29/21 11:44 Iohexol (Omnipaque 300 Mg/ml) 75 ml 1X ONCE 03/27/21 11:45 03/27/21 11:46 DC 03/27/21 11:44 75 ML Ondansetron HCl (Zofran) 4 mg 1X ONCE 03/27/21 11:00 03/27/21 11:01 DC 03/27/21 11:39 4 MG Sodium Chloride 1,000 ml @ 1,000 mls/hr 1X ONCE 03/27/21 11:00 03/27/21 11:59 DC 03/27/21 11:00 1,000 MLS/HR (MUTLETHAA,MAXIMINO M POLARITY TESTER) Allergies: Allergies: Allergies Coded Allergies Type Severity Reaction Last Updated Verified Penicillins Allergy Intermediate Hives 12/21/19 Yes aspirin Allergy Intermediate Hives 12/21/19 Yes (MUTUNGA,MAXIMINO M POLARITY TESTER) Physical Exam: PE: Constitutional: Well developed, well nourished, no acute distress, non-toxic appearance. [] HENT: Normocephalic, atraumatic, bilateral external ears normal, oropharynx moist, no oral exudates, nose normal. [] Eyes: PERRLA, EOMI, conjunctiva normal, no discharge. [] Neck: Normal range of motion, no tenderness, supple, no stridor. [] Cardiovascular:Heart rate regular rhythm, no murmur [] Lungs & Thorax: Bilateral breath sounds clear to auscultation [] Abdomen: Bowel sounds normal, soft, no tenderness, no masses, no pulsatile m asses. [] Skin: Warm, dry, no erythema, no rash. [] Back: No tenderness, no CVA tenderness. [] Extremities: No tenderness, no cyanosis, no clubbing, ROM intact, no edema. [] Neurologic: Alert and oriented X 3, normal motor function, normal sensory function, no focal deficits noted. [] Psychologic: Affect normal, judgement normal, mood normal. [] (MUTUNGA,MAXIMINO M POLARITY TESTER) Current Patient Data: Labs: Laboratory Tests Test 03/27/21 11:27 White Blood Count 3.1 x10^3/uL (4.0-11.0) L Red Blood Count 4.49 x10^6/uL (3.50-5.40) Hemoglobin 13.8 g/dL (12.0-15.5) Hematocrit 39.2 % (36.0-47.0) Mean Corpuscular Volume 87 fL (79-100) Mean Corpuscular Hemoglobin 31 pg (25-35) Mean Corpuscular Hemoglobin Concent 35 g/dL (31-37) Red Cell Distribution Width 13.3 % (11.5-14.5) Platelet Count 196 x10^3/uL (140-400) Neutrophils (%) (Auto) 54 % (31-73) Lymphocytes (%) (Auto) 24 % (24-48) Monocytes (%) (Auto) 22 % (0-9) H Eosinophils (%) (Auto) 1 % (0-3) Basophils (%) (Auto) 0 % (0-3) Neutrophils # (Auto) 1.6 x10^3/uL (1.8-7.7) L Lymphocytes # (Auto) 0.7 x10^3/uL (1.0-4.8) L Monocytes # (Auto) 0.7 x10^3/uL (0.0-1.1) Eosinophils # (Auto) 0.0 x10^3/uL (0.0-0.7) Basophils # (Auto) 0.0 x10^3/uL (0.0-0.2) Platelet Estimate Pending Sodium Level 139 mmol/L (136-145) Potassium Level 3.9 mmol/L (3.5-5.1) Chloride Level 105 mmol/L (98-107) Carbon Dioxide Level 24 mmol/L (21-32) Anion Gap 10 (6-14) Blood Urea Nitrogen 9 mg/dL (7-20) Creatinine 0.7 mg/dL (0.6-1.0) Estimated GFR (Cockcroft-Gault) 91.8 BUN/Creatinine Ratio 13 (6-20) Glucose Level 78 mg/dL (70-99) Calcium Level 8.8 mg/dL (8.5-10.1) Total Bilirubin 0.5 mg/dL (0.2-1.0) Aspartate Amino Transferase (AST) 24 U/L (15-37) Alanine Aminotransferase (ALT) 29 U/L (14-59) Alkaline Phosphatase 118 U/L (46-116) H Total Protein 6.9 g/dL (6.4-8.2) Albumin 3.0 g/dL (3.4-5.0) L Albumin/Globulin Ratio 0.8 (1.0-1.7) L Lipase 67 U/L (73-393) L Laboratory Tests 03/27/21 11:27 Laboratory Tests 03/27/21 11:27 Vital Signs: Vital Signs Date Time Temp Pulse Resp B/P (MAP) Pulse Ox O2 Delivery O2 Flow Rate FiO2 03/27/21 11:19 91 135/75 (95) 99 03/27/21 10:10 97.9 18 Room Air 97.9 (MAXIMINO TRIANA APRN) EKG: EKG: [] (MAXIMINO TRIANA APRN) Radiology/Procedures: Radiology/Procedures: []PROCEDURE: CT ABD PELV W/ IV CONTRST ONLY Exam Date: 03/27/2021 11:[address] ABDOMEN+PELVIS W Indication: Reason: LLQ pain diarrhea / Spl. Instructions: OMNI 300 INJ. 75 MLS / History: . TECHNIQUE: CT examination of the abdomen and pelvis was performed following the administration of nonionic intravenous contrast. One or more of the following dose reduction techniques were utilized: *Automated exposure control (AEC) *Adjustment of mA and/or kV according to patient size *Use of iterative reconstruction technique *CT scan done according to ALARA, or ALARA/IMAGE GENTLY COMPARISON: March 11, 2021 FINDINGS: The visualized lung bases are clear. There is a large gallstone. The liver, gallbladder, spleen, pancreas, adrenal glands and kidneys are otherwise normal. Urinary bladder is normal in appearance. Diverticulosis coli is seen without bowel obstruction or inflammation. Interval resolution of previously seen inflammatory changes involving the proximal colon. The appendix is normal. Mild prerectal fat stranding and soft tissue prominence is again seen, unchanged and possibly representing scarring from prior hysterectomy. Mild atherosclerotic calcifications are seen. No lymphadenopathy or ascites is seen. Degenerative changes are seen in the spine. IMPRESSION: Diverticulosis coli without evidence for diverticulitis. Interval resolution of previously seen inflammatory changes involving the proximal colon. Mild prerectal fat stranding and soft tissue prominence is again seen, unchanged and possibly representing scarring from prior hysterectomy. Electronically signed by: Champ Cuello MD (03/27/2021 12:09 PM) [facility] DICTATED and SIGNED BY: CHAMP CUELLO MD DATE: 03/27/21 [id number] 0 (MAXIMINO TRIANA APRN) Course & Med Decision Making: Course & Med Decision Making Pertinent Labs and Imaging studies reviewed. (See chart for details) This is a 40-year-old female patient presented to the ED today complaining of left lower quadrant abdominal pain with diarrhea, symptoms began yesterday. Also complaining of a cough and a sore throat. Patient refusing to be tested for COVID-19 though she works at [employer] and does not wear a mask and is unvaccinated. CBC with a WBC of 3.1, CMP with nothing really acute. UA negative for infection, CT of the abdomen and pelvis is negative for any acute findings. Patient was discharged home. Supportive care measures recommended. Follow-up with primary care doctor in 1 week (MAXIMINO TRIANA APRN) Dragon Disclaimer: Dragon Disclaimer: This electronic medical record was generated, in whole or in part, using a voice recognition dictation system. (MAXIMINO TRIANA APRN) Departure Departure Impression: Primary Impression: Diarrhea Qualified Codes: R19.7 - Diarrhea, unspecified Additional Impressions: Cough Left lower quadrant abdominal pain Sore throat Disposition: HOME / SELF CARE / HOMELESS Condition: STABLE Referrals: DAVID MEDINA MD (PCP) Follow-up in 1 week Patient Instructions: Abdominal Pain, Cough, Adult, [id number], Diarrhea, [id number] Additional Instructions: You were evaluated in the emergency room, your CT of the abdomen and pelvis is negative for any acute findings. Your labs your white count was slightly low. This could mean you have a virus. We encourage you to rest, push fluids. Take Tylenol or Motrin for pain or fever. Follow-up with your own doctor in 1 to 2 weeks Scripts Dicyclomine Hcl (DICYCLOMINE HCL) 20 Mg Tablet 1 TAB PO TID, #30 TAB 1 Refill Prov: MAXIMINO TRIANA APRN 03/27/21 Prochlorperazine Maleate (Compazine) 10 Mg Tablet 1 TAB PO Q6HRS for 7 Days, #28 TAB 0 Refills Prov: MAXIMINO TRIANA APRN 03/27/21 Attending Signature Attending Signature I have participated in the care of this patient and I have reviewed and agree with all pertinent clinical information above including history, exam, and recommendations. (WOJCIECH GARCIA DO) MAXIMINO TRIANA APRN Mar 27, 2021 12:42 WOJCIECH GARCIA DO Mar 27, 2021 14:18
[2021-03-27 13:12] LABS: BILIRUBIN,URINE NEGATIVE (NEG); CLARITY,URINE CLEAR; COLOR,URINE YELLOW; NITRITE,URINE NEGATIVE (NEG); PROTEIN,URINE NEGATIVE (NEG-TRACE)
[2021-03-27 13:32] LABS: BACTERIA,URINE FEW /HPF (0-FEW)
[2021-03-27] MEDS ORDERED: DICY20TA3 PO (13:44)
[2021-03-27] MEDS ORDERED: PROC10TA57 PO (13:44)
[2021-03-27 14:15] VITALS: BP 158/71
[2021-03-27 14:32] LABS: % ATYL 1 % (0-0); % BANDS 2 % (0-9); % BASOS 1 % (0-3); % EOS 1 % (0-5); % LYMPHS 31 % (24-48); % MONOS 19 % (0-10); % SEGS 45 % (35-66)
[2021-03-27 14:39] LABS: PLT ESTIMATE ADEQUATE (ADEQUATE)
== END 2021-03-27 14:15 | disposition home or self-care (01) ==
LOC: ER 09:59
DX: R19.7 Diarrhea, unspecified (principal); R10.32 Left lower quadrant pain; J02.9 Acute pharyngitis, unspecified; J45.909 Unspecified asthma, uncomplicated; F17.200 Nicotine dependence, unspecified, uncomplicated; Z88.0 Allergy status to penicillin; Z88.6 Allergy status to analgesic agent
CPT/HCPCS: 36415; 74177; 80053; 81001; 83690; 85007; 85025; 87086; 96361; 96374; 96375; 99285; J2405; J3010; J7030; Q9967

== ENCOUNTER 2021-10-30 22:42 | Emergency (ER) | payer OTHER ==
[~2021-10-30] VITALS: Ht 165.1 cm; Wt 97.4 kg
[~2021-10-30 22:42] MED LIST changes: +DICY20TA PO; -METH-364 PO; +METH10TA32 PO; +PROC10TA57 PO
[2021-10-30] MEDS ORDERED: NITROGLYCERIN SUBLINGUAL 0.4 MG BOTTLE OF 25. SL PRN (23:15)
[2021-10-30] MEDS ORDERED: MORPHINE SULFATE 4 MG/ML INJ. IV/SQ PRN (23:15)
[2021-10-30 23:23] LABS: BASO % 0 % (0-3); EOS # 0.1 x10^3/uL (0.0-0.7); EOS % 1 % (0-3); HEMATOCRIT 42.7 % (36.0-47.0); HEMOGLOBIN 14.2 g/dL (12.0-15.5); LYMPH # 2.7 x10^3/uL (1.0-4.8); LYMPH % 36 % (24-48); MEAN CORPUSCULAR HEMOGLOBIN 29 pg (25-35); MEAN CORPUSCULAR HGB CONC 33 g/dL (31-37); MEAN CORPUSCULAR VOLUME 86 fL (79-100); MONO # 0.8 x10^3/uL (0.0-1.1); MONO % 10 % (0-9); NEUT # 3.9 x10^3/uL (1.8-7.7); NEUT % 52 % (31-73); PLATELET COUNT 209 x10^3/uL (140-400); RED BLOOD COUNT 4.97 x10^6/uL (3.50-5.40); WHITE BLOOD COUNT 7.4 x10^3/uL (4.0-11.0)
[2021-10-30 23:34] LABS: CREATININE 0.6 mg/dL (0.6-1.0); GFR 109.1; POTASSIUM 4.2 mmol/L (3.5-5.1)
--- NOTE | 2021-10-30 23:38 | RAD ---
XR CHEST 1V 10/30/2021 11:08 PM INDICATION: Chest pain COMPARISON: 08/20/2020 TECHNIQUE: Portable frontal view of the chest is provided. FINDINGS: The cardiomediastinal silhouette is within normal limits. Lungs are clear. There are no significant pleural effusions. There is no pulmonary vascular congestion. No pneumothora x. No suspicious osseous abnormality. IMPRESSION: There is no acute cardiopulmonary process. Electronically signed by: Alexia Brothers MD (10/30/2021 11:36 PM) [facility]
[2021-10-30 23:40] LABS: ALBUMIN 3.2 g/dL (3.4-5.0); ALBUMIN/GLOBULIN RATIO 0.8 (1.0-1.7); MAGNESIUM 1.8 mg/dL (1.8-2.4); TOTAL BILIRUBIN 0.3 mg/dL (0.2-1.0); TOTAL PROTEIN 7.2 g/dL (6.4-8.2)
[2021-10-30 23:43] LABS: AMPHETAMINE/METHAMPHETAMINE NEG (NEG); BARBITURATES NEG (NEG); BENZODIAZEPINES NEG (NEG); CANNABINOIDS POS (NEG); COCAINE NEG (NEG); METHADONE NEG (NEG); OPIATES NEG (NEG); PHENCYCLIDINE NEG (NEG)
--- NOTE | 2021-10-30 23:49 | PHYS DOC ---
Past Medical History Past Medical History: Asthma, Other Additional Past Medical Histor: thyroid disease,herpes,muscle spasms to lower back,HEART MURMUR (MAXIMINO TRIANA Karson MASTER CONTROL SUPERVISOR) Past Surgical History: Hysterectomy (MAXIMINO TRIANA Karson MASTER CONTROL SUPERVISOR) Smoking Status: Current Every Day Smoker Alcohol Use: Rarely Drug Use: None (MAXIMINO TRIANA MASTER CONTROL SUPERVISOR) General Adult EDM: Chief Complaint: CHEST PAIN HPI: HPI: Patient is a 41 year old female with a history of asthma, current smoker, "minor heartattack" who presents to the ED today complaining of 10 out of 10 substernal chest pain nonradiating in nature, lightheadedness, shortness of breath, symptoms began at noon today. Patient denies any history of stents. She states she was diagnosed with this minor heart attack over 10 years ago and does not follow-up with any registry np. Denies history of high blood pressure. She states she is not on any medicines right now. Denies anything exacerbating or relieving her pain. (MAXIMINO TRIANA MASTER CONTROL SUPERVISOR) Review of Systems: Review of Systems: Constitutional: Denies fever or chills. [] Eyes: Denies change in visual acuity. [] HENT: Denies nasal congestion or sore throat. [] Respiratory: Reports shortness of breath. Denies cough Cardiovascular: Reports chest pain GI: Denies abdominal pain, nausea, vomiting, bloody stools or diarrhea. [] : Denies dysuria. [] Musculoskeletal: Denies back pain or joint pain. [] Integument: Denies rash. [] Neurologic: Denies headache, focal weakness or sensory changes. [] Psychiatric: Denies depression or anxiety. [] (MAIXMINO TRIANA Karson MASTER CONTROL SUPERVISOR) Heart Score: C/O Chest Pain: Yes HEART Score for Chest Pain: HEART Score for Chest Pain Response (Comments) Value History Slighlty/Non-Suspicious 0 ECG Normal 0 Age < 45 0 Risk Factors 1 or 2 Risk Factors 1 Troponin < Normal Limit 0 Total 1 Risk Factors: Risk Factors: DM, Current or recent (<one month) smoker, HTN, HLP, family history of CAD, obesity. Risk Scores: Score 0 - 3: 2.5% MACE over next 6 weeks - Discharge Home Score 4 - 6: 20.3% MACE over next 6 weeks - Admit for Clinical Observation Score 7 - 10: 72.7% MACE over next 6 weeks - Early Invasive Strategies (VASILIYAMAXIMINO M MASTER CONTROL SUPERVISOR) Current Medications: Current Medications Medications (Trade) Dose Ordered Sig/Adriana Start Time Stop Time Status Last Admin Dose Admin Morphine Sulfate (Morphine Sulfate) 4 mg PRN Q15MIN PRN 10/30/21 23:15 10/31/21 23:14 10/30/21 23:39 4 MG Nitroglycerin (Nitrostat) 0.4 mg PRN Q5MIN PRN 10/30/21 23:15 10/31/21 23:14 10/30/21 23:38 0.4 MG (MUTUNGA,MAXIMINO M MASTER CONTROL SUPERVISOR) Allergies: Allergies: Allergies Coded Allergies Type Severity Reaction Last Updated Verified Penicillins Allergy Intermediate Hives 12/21/19 Yes aspirin Allergy Intermediate Hives 12/21/19 Yes (JOSIEUNGA,MAXIMINO M MASTER CONTROL SUPERVISOR) Physical Exam: PE: Constitutional: Well developed, well nourished, no acute distress, non-toxic appearance. [] HENT: Normocephalic, atraumatic, bilateral external ears normal, oropharynx moist, no oral exudates, nose normal. [] Eyes: PERRLA, EOMI, conjunctiva normal, no discharge. [] Neck: Normal range of motion, no tenderness, supple, no stridor. [] Cardiovascular:Heart rate regular rhythm, no murmur [] Lungs & Thorax: Bilateral breath sounds clear to auscultation [] Abdomen: Bowel sounds normal, soft, no tenderness, no masses, no pulsatile masses. [] Skin: Warm, dry, no erythema, no rash. [] Back: No tenderness, no CVA tenderness. [] Extremities: No tenderness, no cyanosis, no clubbing, ROM intact, no edema. [] Neurologic: Alert and oriented X 3, normal motor function, normal sensory function, no focal deficits noted. [] Psychologic: Affect normal, judgement normal, mood normal. [] (MUTUNGA,MAXIMINO M MASTER CONTROL SUPERVISOR) Current Patient Data: Labs: Laboratory Tests Test 10/30/21 23:11 10/30/21 23:28 White Blood Count 7.4 x10^3/uL (4.0-11.0) Red Blood Count 4.97 x10^6/uL (3.50-5.40) Hemoglobin 14.2 g/dL (12.0-15.5) Hematocrit 42.7 % (36.0-47.0) Mean Corpuscular Volume 86 fL (79-100) Mean Corpuscular Hemoglobin 29 pg (25-35) Mean Corpuscular Hemoglobin Concent 33 g/dL (31-37) Red Cell Distribution Width 13.0 % (11.5-14.5) Platelet Count 209 x10^3/uL (140-400) Neutrophils (%) (Auto) 52 % (31-73) Lymphocytes (%) (Auto) 36 % (24-48) Monocytes (%) (Auto) 10 % (0-9) H Eosinophils (%) (Auto) 1 % (0-3) Basophils (%) (Auto) 0 % (0-3) Neutrophils # (Auto) 3.9 x10^3/uL (1.8-7.7) Lymphocytes # (Auto) 2.7 x10^3/uL (1.0-4.8) Monocytes # (Auto) 0.8 x10^3/uL (0.0-1.1) Eosinophils # (Auto) 0.1 x10^3/uL (0.0-0.7) Basophils # (Auto) 0.0 x10^3/uL (0.0-0.2) D-Dimer (Samia) 0.32 ug/mlFEU (0.00-0.50) Sodium Level 138 mmol/L (136-145) Potassium Level 4.2 mmol/L (3.5-5.1) Chloride Level 104 mmol/L (98-107) Carbon Dioxide Level 27 mmol/L (21-32) Anion Gap 7 (6-14) Blood Urea Nitrogen 11 mg/dL (7-20) Creatinine 0.6 mg/dL (0.6-1.0) Estimated GFR (Cockcroft-Gault) 109.1 BUN/Creatinine Ratio 18 (6-20) Glucose Level 107 mg/dL (70-99) H Calcium Level 9.0 mg/dL (8.5-10.1) Magnesium Level 1.8 mg/dL (1.8-2.4) Total Bilirubin 0.3 mg/dL (0.2-1.0) Aspartate Amino Transferase (AST) 16 U/L (15-37) Alanine Aminotransferase (ALT) 20 U/L (14-59) Alkaline Phosphatase 147 U/L (46-116) H Troponin I High Sensitivity 10 ng/L (4-50) DY-Uis-B-Type Natriuretic Peptide 136 pg/mL (0-124) H Total Protein 7.2 g/dL (6.4-8.2) Albumin 3.2 g/dL (3.4-5.0) L Albumin/Globulin Ratio 0.8 (1.0-1.7) L Urine Opiates Screen Neg (NEG) Urine Methadone Screen Neg (NEG) Urine Barbiturates Neg (NEG) Urine Phencyclidine Screen Neg (NEG) Urine Amphetamine/Methamphetamine Neg (NEG) Urine Benzodiazepines Screen Neg (NEG) Urine Cocaine Screen Neg (NEG) Urine Cannabinoids Screen Pos (NEG) Urine Ethyl Alcohol Neg (NEG) Laboratory Tests 10/30/21 23:11 Laboratory Tests 10/30/21 23:11 Vital Signs: Vital Signs Date Time Temp Pulse Resp B/P (MAP) Pulse Ox O2 Delivery O2 Flow Rate FiO2 10/30/21 23:39 18 99 Room Air 10/30/21 23:38 71 143/65 10/30/21 22:42 98.1 98.1 (MAXIMINO TRIANA MASTER CONTROL SUPERVISOR) EKG: EK interpreted by Dr. Puente sinus rhythm heart rate 77 no STEMI [] (MAXIMINO TRIANA MASTER CONTROL SUPERVISOR) Radiology/Procedures: Radiology/Procedures: []PROCEDURE: PORTABLE CHEST 1V XR CHEST 1V 10/30/2021 11:08 PM INDICATION: Chest pain COMPARISON: 08/20/2020 TECHNIQUE: Portable frontal view of the chest is provided. FINDINGS: The cardiomediastinal silhouette is within normal limits. Lungs are clear. There are no significant pleural effusions. There is no pulmonary vascular congestion. No pneumothorax. No suspicious osseous abnormality. IMPRESSION: There is no acute cardiopulmonary process. Electronically signed by: Candy Brennan MD (10/30/2021 11:36 PM) [facility] DICTATED and SIGNED BY: CANDY BRENNAN MD DATE: 10/30/21 4720 (MAXIMINO TRIANA MASTER CONTROL SUPERVISOR) Course & Med Decision Making: Course & Med Decision Making Pertinent Labs and Imaging studies reviewed. (See chart for details) This a 41-year-old female patient presented to the ED today complaining of chest pain, shortness of breath, lightheadedness, that began today. Patient reports history of minor heart attack 10 years ago with no stents. EKG is negative. D-dimer is normal, first high-sensitivity troponin is 10, CBC CMP with no acute findings, UA negative for infection, UDS positive for marijuana use. Chest x-ray is negative. Waiting for the second troponin and then will be discharged home. [address] Puente (MAXIMINO TRIANA APRN) Course & Med Decision Making Patient was evaluated for chief complaint. Work-up consisted of laboratory analysis radiologic imaging and EKG. Results reviewed and discussed with patient. EKG without acute ischemic changes troponin x2 - D-dimer within normal limits. Noncardiac chest pain. Patient stable for discharge will need follow-up primary care physician (YADIRA PUENTE DO) Dragon Disclaimer: Dragon Disclaimer: This electronic medical record was generated, in whole or in part, using a voice recognition dictation system. (MAXIMINO TRIANA APRN) Departure Departure Impression: Primary Impression: Chest pain Qualified Codes: R07.9 - Chest pain, unspecified Disposition: HOME / SELF CARE / HOMELESS Condition: STABLE Referrals: DAVID MEDINA MD (PCP) Patient Instructions: Chest Pain (Nonspecific) MAXIMINO TRIANA APRN Oct 30, 2021 23:49 YADIRA PUENTE DO Oct 31, 2021 02:48
[2021-10-30 23:51] LABS: AMORPHOUS SEDIMENT,UR PRESENT /HPF; BACTERIA,URINE FEW /HPF (0-FEW); RBC,URINE 0 /HPF (0-2)
[2021-10-31 03:00] VITALS: BP 134/66
--- NOTE | 2021-10-31 07:16 | EKG ---
[facility] [address] [place] [address] Test Date: 2021-10-30 Test Time: 22:47:41 Pat Name: JOHN NICOLE Department: Room: Gender: F Batch Tester: : 1980 Requested By: YADIRA ORTEGA Order Number: [id number] Reading MD: Carlos Burks Measurements Intervals Douglas Rate: 77 P: 31 WA: 134 QRS: 24 QRSD: 82 T: 34 QT: 362 QTc: 411 Interpretive Statements SINUS RHYTHM INCOMPLETE RIGHT BUNDLE BRANCH BLOCK Electronically Signed On 11-01-2021 21:24:03 CDT by Carlos Burks
== END 2021-10-31 03:00 | disposition home or self-care (01) ==
LOC: ER 22:42
DX: R07.2 Precordial pain (principal); R42 Dizziness and giddiness; R06.02 Shortness of breath; J45.909 Unspecified asthma, uncomplicated; F17.200 Nicotine dependence, unspecified, uncomplicated; Z88.0 Allergy status to penicillin; Z88.6 Allergy status to analgesic agent
CPT/HCPCS: 36415; 71045; 80053; 80307; 81001; 83735; 83880; 84443; 84484; 85025; 85379; 93005; 96374; 99285; J2270